=== PATIENT | female | born 1960 | race Caucasian/White ===

== ENCOUNTER 2019-12-29 13:57 | Emergency (ER) | payer OTHER, SELFPAY ==
[2019-12-29 14:10] VITALS: BP 126/94; PULSE 71; RESP 16; TEMP 36.7; O2SAT 95; BMI 17.2
--- NOTE | 2019-12-29 14:22 | W.ED.GENADLT ---
HPI - General Adult General: Chief complaint: General Medical Stated complaint: throat spasms Time Seen by Provider: 12/29/19 14:18 History of Present Illness: HPI narrative: Patient is a 59-year-old female comes to the ED with esophageal spasms. Patient has a history of esophageal spasms and talk to her PCP on Monday and they told her if symptoms worsen she can come to the ED to get some treatment to help reduce spasms. Patient says this started on and has continued to get worse. She says she has had trouble eating or drinking over the past couple days. Denies any shortness of breath, palpitations, nausea/vomiting, bladder or bowel symptoms. Associated symptoms: Deny chest pain, dyspnea, headache(s), nausea, rash, palpitations or vomiting Review of Systems Const: Denies: fever(s), chills or fatigue Eyes: Denies: change in vision or eye discomfort ENMT: Reports: other (esophageal spasms); Denies: throat pain, odynophagia, nasal discharge or nasal congestion Card: Denies: chest pain, palpitations, edema, swelling of feet/ankles, dyspnea on exertion or orthopnea Resp: Denies: dyspnea, productive cough or non-productive cough GI: Denies: abdominal pain, nausea, vomiting, diarrhea, constipation or hematochezia : Denies: flank pain, dysuria or hematuria Musc: Denies: neck pain, back pain or extremity swelling Skin/Breast: Denies: rash or new lesions Neuro: Denies: headache(s), numbness in extremities or weakness in extremities PFS ED PFSH: Social History Smoking and tobacco status: never smoked Alcohol intake: current Alcohol intake frequency: holidays/special occasions only Substance/Drug Use: never Physical Exam Const: COMMON NORMALS: no acute distress, patient oriented x3 and alert GENERAL APPEARANCE: cooperative and anxious HENMT: COMMON NORMALS: normocephalic HEAD & SCALP: normocephalic MOUTH: Normal oral and palatal mucosa present THROAT: posterior oropharynx normal and uvula midline Eye: COMMON NORMALS: Equal, round and reactive pupils present PUPIL: Yes Equal, round and reactive pupils present Neck/C-Spine: COMMON NORMALS: supple GENERAL: Yes normal visual inspection Resp: COMMON NORMALS: normal respiratory effort, No retractions, No use of accessory muscles and clear to auscultation bilaterally AUSCULTATION: clear to auscultation bilaterally Cardio: COMMON NORMALS: regular rate, regular rhythm, S1 normal heart sound present, S2 normal heart sound present, No gallops present (Cardio), No clicks present (Cardio), No murmurs present (Cardio) and Peripheral pulses 2+ throughout RATE: regular rate RHYTHM: regular rhythm HEART SOUNDS: S1 normal heart sound present and S2 normal heart sound present PERIPHERAL PULSES: Peripheral pulses 2+ throughout GI: COMMON NORMALS: Normal to inspection, nondistended, normoactive bowel sounds present, Soft to palpation, non-tender and no masses PALPATION: Yes Soft to palpation : COMMON NORMALS: Yes no CVA tenderness BLADDER/KIDNEY EXAM: Yes no CVA tenderness Back/Pelvis: COMMON NORMALS: no CVA tenderness Extremity: COMMON NORMALS: normal to inspection and no pedal edema Neuro: COMMON NORMALS: patient oriented x3 and moves all extremities SENSORIUM/ORIENTATION: Yes alert Skin: COMMON NORMALS: no rashes or lesions noted GENERAL SKIN EXAM: no rashes or lesions noted and dry skin Course Vital Signs: Vital signs: Vital Signs Temperature 98.1 F 12/29/19 14:10 Pulse Rate 71 12/29/19 14:10 Respiratory Rate 16 12/29/19 14:10 Blood Pressure 126/94 12/29/19 14:10 Pulse Oximetry 95 12/29/19 14:10 MDM - General Adult MDM Narrative: Medical decision making narrative: pt is a 59 y/o F that comes to the ED with esophageal spasms. She has had previous episodes of esophageal spasms. EKG was performed and showed normal sinus rhythm with no st segment elevation or depression seen. pt was given IV 2L of fluid and nitroglycerin along with hydralazine to help with spasms. She had some mild improvement with symptoms. I then gave patient Ativan and norflex to help with symptoms as well and then discharged patient. She was also given a script for cyclobenzaprine to help with esophageal spasms as well. She was told to call her PCP tomorrow morning to discuss ER visit and continuing symptoms of Esophageal spasms. Pt understood and agreed with plan. EKG Data^: EKG 1: Attestation: I personally reviewed and interpreted this EKG as follows: EKG interpretation date: 12/29/19 Interpretation: Normal sinus rhythm, 88 bpm, no ST segment elevation or depression seen. P waves present. Discharge Plan Discharge Patient Disposition: Home, Self-Care Clinical Impression: Esophageal spasm Condition: Stable Prescriptions: New cyclobenzaprine 10 mg tablet 10 mg PO TID PRN (Reason: muscle spasm) Qty: 20 RF: 0 No Action amlodipine 5 mg Tablet 5 mg PO DAILY RF: 0 tramadol 50 mg Tablet 50 mg PO BID PRN (Reason: Pain) RF: 0 levothyroxine 25 mcg Tablet 25 mcg PO DAILY RF: 0 Ambien 10 mg Tablet 10 mg PO BEDTIME RF: 0 Discharge Orders: Discharge Order (Routine); Ordered 12/29/19 Ordered By: Henry Morfni Referrals: Moe Carrillo, [Primary Care Provider] - Discharge Diet: Regular Discharge Activity: Resume usual activity Patient Instructions: Esophageal Spasm (ED) Activity Restrictions/Additional Instructions: Follow-up with medical provider and give them a call tomorrow morning to discuss esophageal spasm symptoms. Take medications as prescribed. Return to the ER or your medical provider if condition worsens. Please read and understand discharge instructions. If any questions, please ask. Coding Level of Care Code ED Route Driver Salesperson for Chg Fwd Exam Comprehensive
--- NOTE | 2019-12-29 14:30 | ECG_ITS ---
[facility] Test Date: 2019-12-29 Pat Name: Cheri Tobias Department: Room: Gender: Female Carding Supervisor: : 1960 Requested By: Henry Morfin Order Number: [id number] Roe MD: Maria Luz Simons M.D. Measurements Intervals [place] Rate: 88 P: 81 MT: 152 QRS: 55 QRSD: 69 T: 73 QT: 362 QTc: 438 Interpretive Statements SINUS RHYTHM No previous ECG available for comparison Electronically Signed On 12-29-2019 19:59:47 CDT by Maria Luz Simons M.D. [email or web address]
[2019-12-29] MEDS: nitroglycerin 0.4 mg sublingual Tablet SUBLINGUAL (15:15)
[2019-12-29] MEDS: hyDRALAzine 20 mg/mL INJ 1 mL 10 MG IVP (15:15)
[2019-12-29] MEDS: sodium chloride 0.9% 1,000 ML 999 ML IV ×2 (15:16→16:51)
[2019-12-29] MEDS: LORazepam 2 mg/mL INJ 1 mL IVP (16:12)
[2019-12-29] MEDS: lidocaine 2% viscous 15 ML, aluminum-mag hydrox-simethicon 30 ML, sucralfate oral liq 1 GM PO (16:49)
[2019-12-29] MEDS: orphenadrine 30 mg/mL Inj 2 mL 60 MG IVP (17:21)
[2019-12-29 18:30] VITALS: BP 138/47; PULSE 98; RESP 20; O2SAT 100
== END 2019-12-29 18:32 | disposition home or self-care (01) ==
PROVIDERS: Emergency Provider Physician Assistant; PCP Electrodiagnostic Medicine
DX: K22.4 Dyskinesia of esophagus (principal)
CPT/HCPCS: 12345; 93005; 96361; 96374; 96375; 99282; 99283; J0360; J2060; J2360; J7030

== ENCOUNTER 2021-09-09 08:29 | Emergency (ER) | payer OTHER, SELFPAY ==
[2021-09-09 08:35] VITALS: BP 134/90; PULSE 73; RESP 15; TEMP 36.5; O2SAT 100; BMI 15.7
--- NOTE | 2021-09-09 08:54 | ED_ITS ---
HPI - General Adult General: Chief complaint: Airway/Esophagus Foreign Body Stated complaint: throat spasms Time Seen by Provider: 09/09/21 08:43 History of Present Illness: Patient reports here today with complaints of esophageal discomfort. That started yesterday. Patient states that she had this happen couple years ago where her esophagus swelled and she had to come in and get IV medication. Patient states prior has problem with reflux she had taken medication for it. Patient states it feels like it is tight right above her stomach slightly tender and that she really cannot eating anything and that she is spitting up some food. She is able to handle her secretions she has no drooling she has taken sips of water. Denies any vomiting denies any diarrhea, fever chills, or chest pains or shortness of breath. Associated symptoms: Deny chest pain, dyspnea, headache(s), nausea, rash or vomiting Review of Systems Narrative: Patient did take cyclobenzaprine and Xanax through the night and yesterday. Patient was able to sleep throughout the night without difficulty Const: Denies: fever(s), chills or body aches Eyes: Denies: eye discomfort ENMT: Denies: throat pain Card: Denies: chest pain Resp: Denies: dyspnea GI: Reports: abdominal pain and other (Feels like food is stuck in her lower esophagus, said it feels like it spas); Denies: nausea, vomiting or dysphagia Skin/Breast: Denies: rash Neuro: Denies: headache(s) Psych: Denies: depression or suicidal ideation [facility] ED PFSH: Social History Smoking and tobacco status: never smoked Alcohol intake: current Alcohol intake frequency: holidays/special occasions only Physical Exam Narrative: EXAM NARRATIVE: Patient is sipping on water but spitting into a cup also. Patient has no drooling going on. Patient does not have any shortness of breath. Const: COMMON NORMALS: no acute distress, patient oriented x3 and alert HENMT: COMMON NORMALS: normocephalic and external ears normal HEAD & SCALP: normocephalic EXTERNAL EAR: Yes external ears normal Eye: COMMON NORMALS: EOMs intact bilaterally Neck/C-Spine: COMMON NORMALS: no JVD Resp: COMMON NORMALS: normal respiratory effort and No use of accessory muscles Cardio: COMMON NORMALS: no JVD GI: AUSCULTATION: Yes normoactive bowel sounds PALPATION: Yes Tenderness to palpation present (GI) (Esophagus right above xiphoid process) Extremity: COMMON NORMALS: normal to inspection and full ROM Neuro: COMMON NORMALS: patient oriented x3 SENSORIUM/ORIENTATION: Yes alert Psych: COMMON NORMALS: mental status grossly normal Skin: COMMON NORMALS: no rashes or lesions noted GENERAL SKIN EXAM: no rashes or lesions noted Course Vital Signs: Vital signs: Vital Signs Temperature 97.7 F 09/09/21 08:35 Pulse Rate 73 09/09/21 08:35 Respiratory Rate 15 09/09/21 08:35 Blood Pressure 134/90 09/09/21 08:35 Pulse Oximetry 100 09/09/21 08:35 [facility] - General Adult Medical Decision Making Patient presents with what she calls esophageal pressure swelling possible spasm she had this couple years ago. Patient was given a nitroglycerin and IV Pepcid and Norflex plus a liter fluid and patient responded very well and is able to drink without difficulty. Patient also was given a GI cocktail after she felt much better. Patient drank a full bottle of water without I am coming back up. Drawn encourage patient to follow-up Dr. Carrillo see about getting scheduled for an E GD also strongly recommend getting colonoscopy done or at least a Cologuard test. Patient also given 90-day prescription for Prilosec as she has and they only pay for with 90 days. I did encourage patient to go ahead and buy weeks worth at the local store and take that till prescription comes in Discharge Plan Discharge Patient Disposition: Home Clinical Impression: Gastroesophageal reflux disease Condition: Stable Prescriptions: New omeprazole 40 mg capsule,delayed release(DR/EC) 40 mg PO DAILY 90 Days Qty: 90 0RF No Action amlodipine 5 mg Tablet 5 mg PO DAILY 0RF tramadol 50 mg Tablet 50 mg PO BID PRN (Reason: Pain) 0RF levothyroxine 25 mcg Tablet 25 mcg PO DAILY 0RF Ambien 10 mg Tablet 10 mg PO BEDTIME 0RF cyclobenzaprine 10 mg tablet 10 mg PO TID PRN (Reason: muscle spasm) Qty: 20 0RF Discharge Orders: Discharge ED (Routine); Ordered 09/09/21 Ordered By: Ricardo Valle Referrals: Moe Carrillo, [Primary Care Provider] - Discharge Diet: Advance as tolerated Discharge Activity: Resume usual activity Patient Instructions: GERD (Gastroesophageal Reflux Disease) (ED), Esophageal Spasm (ED) Activity Restrictions/Additional Instructions: Follow-up with medical provider as directed. Take medications as prescribed. Return to the ER or your medical provider if condition worsens. Please read and understand discharge instructions. If any questions ask please. I strongly suggest you follow-up Dr. Carrillo get scheduled for an EGD and I also recommended that you get a colonoscopy or at least do the Cologuard test. Coding Level of Care Code ED Company Accountant for Chg Fwd Exam Comprehensive
[2021-09-09] MEDS: sodium chloride 0.9% 1,000 ML 999 ML IV (09:01)
[2021-09-09] MEDS: orphenadrine 30 mg/mL Inj 2 mL 60 MG IVP (09:16)
[2021-09-09] MEDS: famotidine 20 mg/2 mL INJ 40 MG IVP (09:21)
[2021-09-09] MEDS: lidocaine 2% viscous 15 ML, aluminum-mag hydrox-simethicon 30 ML, sucralfate oral liq 1 GM PO (10:16)
[2021-09-09 10:39] VITALS: BP 123/80; PULSE 65; RESP 16; O2SAT 99
== END 2021-09-09 10:50 | disposition home or self-care (01) ==
PROVIDERS: Emergency Provider Nurse Practitioner Family; PCP Electrodiagnostic Medicine
DX: K21.9 Gastro-esophageal reflux disease without esophagitis (principal)
CPT/HCPCS: 96361; 96374; 96375; 99283; J0360; J2360; J3490; J7030

== ENCOUNTER → 2022-01-25 08:09 | Outpatient (BNVA) | payer OTHER, SELFPAY | PROVIDERS: PCP Electrodiagnostic Medicine; Visit Provider Physician Assistant | DX: M25.532 Pain in left wrist (principal) | CPT/HCPCS: 73110 ==

== ENCOUNTER 2022-01-25 10:21 | Outpatient (CLI) | payer OTHER, SELFPAY | END 2022-01-25 10:22 | disposition home or self-care (01) | LOC: SPT 10:22 | PROVIDERS: PCP Electrodiagnostic Medicine; Visit Provider Physician Assistant | DX: Z46.89 Encounter for fitting and adjustment of other specified devices (principal); M25.332 Other instability, left wrist | CPT/HCPCS: 97760; L3984 ==

== ENCOUNTER → 2022-02-15 08:52 | Outpatient (BNVA) | payer OTHER, SELFPAY | PROVIDERS: PCP Electrodiagnostic Medicine; Visit Provider Physician Assistant | DX: S52.571D Other intraarticular fracture of lower end of right radius, subsequent encounter for closed fracture with routine healing (principal); S52.572D Other intraarticular fracture of lower end of left radius, subsequent encounter for closed fracture with routine healing; X58.XXXD Exposure to other specified factors, subsequent encounter | CPT/HCPCS: 73110 ==

== ENCOUNTER 2022-02-15 14:15 | Outpatient (CLI) | payer OTHER, SELFPAY | END 2022-02-15 14:16 | disposition home or self-care (01) | LOC: SPT 14:16 | PROVIDERS: PCP Electrodiagnostic Medicine; Visit Provider Physician Assistant | DX: Z46.89 Encounter for fitting and adjustment of other specified devices (principal); S52.591D Other fractures of lower end of right radius, subsequent encounter for closed fracture with routine healing; S52.592D Other fractures of lower end of left radius, subsequent encounter for closed fracture with routine healing; X58.XXXD Exposure to other specified factors, subsequent encounter | CPT/HCPCS: 97760; L3809; L3908 ==

== ENCOUNTER → 2022-03-01 14:37 | Outpatient (BNVA) | payer OTHER, SELFPAY | PROVIDERS: PCP Electrodiagnostic Medicine; Visit Provider Physician Assistant | DX: S52.501D Unspecified fracture of the lower end of right radius, subsequent encounter for closed fracture with routine healing (principal); W19.XXXD Unspecified fall, subsequent encounter; S52.502D Unspecified fracture of the lower end of left radius, subsequent encounter for closed fracture with routine healing | CPT/HCPCS: 73110 ==

== ENCOUNTER 2023-10-24 13:13 | Oncology outpatient (recurring) (ONCR) | payer OTHER, SELFPAY ==
[2023-09-25 15:17] LABS: Basophils # 0.1 10^3/uL (0.0-0.1); Eosinophils # 0.1 10^3/uL (0.0-0.8); Eosinophils % 0.6 %; Lymphocytes # 2.6 10^3/uL (0.8-4.8); Lymphocytes % 33.2 %; Mean Corpuscular HGB Conc 31.8 g/dL (30-55); Mean Corpuscular Hemoglobin 28.2 pg (27-33); Mean Corpuscular Volume 88.7 fl (85-98); Mean Platelet Volume 9.4 fL (7.4-10.4); Monocytes # 1.1 10^3/uL (0.2-0.9); Monocytes % 14.8 %; Neutrophils # 3.88 10^3/uL (1.8-7.7); Neutrophils % 50.3 %; Nucleated Red Blood Cells % 0 %; Platelet Count 478 10^3/cmm (157-399); Red Blood Count 2.48 10^6/uL (3.85-5.65); Red Cell Distribution Width 14.6 % (12.1-15.1); Reticulocyte % 1.4 % (0.5-2.0); White Blood Count 7.72 10^3/uL (3.29-11.43)
[2023-09-25 15:41] LABS: Alanine Aminotransferase 41 U/L (0-33); Albumin Level 3.4 g/dL (3.5-5.2); Alkaline Phosphatase 114 U/L (35-105); Anion Gap 14.5 (5-19); Aspartate Amino Transferase 66 U/L (0-32); Blood Urea Nitrogen 8 mg/dL (8-23); Calcium 8.8 mg/dL (8.5-10.5); Carbon Dioxide 28 mmol/L (22-29); Chloride 98 mmol/L (98-107); Creatinine Clr Calc Pharmacy 83.1181; Ferritin 21 ng/mL (15-150); Globulin 3.4 g/dL (1.3-4.6); Glucose 87 mg/dL (65-115); Iron 17 ug/dL (37-145); Lactate Dehydrogenase 178 U/L (135-214); Osmolality Calculated 282 mOsm/kg (285-295); Potassium 3.5 mmol/L (3.5-5.1); Sodium 137 mmol/L (136-145); Total Bilirubin 0.3 mg/dL (0.15-1.2); Total Iron Binding Capacity 279 mcg/dl; Total Protein 6.8 g/dL (6.6-8.7); Unsaturated Iron Binding 262 ug/dL (112-347)
[2023-09-25 15:55] LABS: Vitamin B12 637 pg/mL (232-1245)
[2023-09-29] MEDS: ferric carboxy (IVPB) 750 MG in sodium chloride 0.9% (100 ml) 100 ML 345 MG IV (09:46)
[2023-09-29 10:22] VITALS: BP 105/67; BP 106/72; PULSE 85; RESP 16; TEMP 36.4; O2SAT 99
[2023-10-06] MEDS: sodium chloride 0.9% 250 ML 75 ML IV (09:32)
[2023-10-06] MEDS: diphenhydrAMINE 50 mg/mL SDV 1mL 25 MG IVP (09:33)
[2023-10-06] MEDS: ferric carboxy (IVPB) 750 MG in sodium chloride 0.9% (100 ml) 100 ML 345 MG IV (09:37)
[2023-10-06 09:41] LABS: Basophils # 0.1 10^3/uL (0.0-0.1); Basophils % 1.6 %; Eosinophils # 0.1 10^3/uL (0.0-0.8); Eosinophils % 3.7 %; Hematocrit 26.2 % (36-47); Lymphocytes # 1.1 10^3/uL (0.8-4.8); Lymphocytes % 28.6 %; Mean Corpuscular HGB Conc 30.5 g/dL (30-55); Mean Corpuscular Hemoglobin 28.5 pg (27-33); Mean Corpuscular Volume 93.2 fl (85-98); Mean Platelet Volume 9.9 fL (7.4-10.4); Monocytes # 0.5 10^3/uL (0.2-0.9); Monocytes % 13.6 %; Neutrophils # 1.99 10^3/uL (1.8-7.7); Neutrophils % 52.2 %; Nucleated Red Blood Cells % 0 %; Platelet Count 414 10^3/cmm (157-399); Red Blood Count 2.81 10^6/uL (3.85-5.65); Red Cell Distribution Width 20.3 % (12.1-15.1); White Blood Count 3.81 10^3/uL (3.29-11.43)
[2023-10-06 10:23] VITALS: BP 106/68; PULSE 66; RESP 16; TEMP 36.6; O2SAT 99
[2023-10-23 14:31] LABS: Basophils # 0.1 10^3/uL (0.0-0.1); Eosinophils # 0.1 10^3/uL (0.0-0.8); Eosinophils % 0.9 %; Lymphocytes # 1.8 10^3/uL (0.8-4.8); Lymphocytes % 31.5 %; Mean Corpuscular HGB Conc 31.9 g/dL (30-55); Mean Corpuscular Hemoglobin 30.2 pg (27-33); Mean Corpuscular Volume 94.5 fl (85-98); Mean Platelet Volume 9.4 fL (7.4-10.4); Monocytes # 0.9 10^3/uL (0.2-0.9); Monocytes % 15.5 %; Neutrophils # 2.93 10^3/uL (1.8-7.7); Neutrophils % 50.9 %; Nucleated Red Blood Cells % 0 %; Platelet Count 342 10^3/cmm (157-399); Red Blood Count 3.28 10^6/uL (3.85-5.65); Red Cell Distribution Width 21.3 % (12.1-15.1); White Blood Count 5.75 10^3/uL (3.29-11.43)
[2023-10-23 14:53] LABS: Alanine Aminotransferase 49 U/L (0-33); Albumin Level 3.6 g/dL (3.5-5.2); Alkaline Phosphatase 172 U/L (35-105); Anion Gap 12.1 (5-19); Aspartate Amino Transferase 118 U/L (0-32); Blood Urea Nitrogen 8 mg/dL (8-23); Calcium 8.1 mg/dL (8.5-10.5); Carbon Dioxide 28 mmol/L (22-29); Chloride 101 mmol/L (98-107); Globulin 3.4 g/dL (1.3-4.6); Glomerular Filtration Rate 161.7 mL/min (90-130); Glucose 109 mg/dL (65-115); Iron 112 ug/dL (37-145); Osmolality Calculated 283 mOsm/kg (285-295); Percent Saturation 51.8 % (20-50); Potassium 4.1 mmol/L (3.5-5.1); Sodium 137 mmol/L (136-145); Total Bilirubin 0.2 mg/dL (0.15-1.2); Total Iron Binding Capacity 216 mcg/dl; Unsaturated Iron Binding 104 ug/dL (112-347)
[2023-10-23 14:54] LABS: Creatinine Clr Calc Pharmacy 103.8976
[2023-10-23 15:05] LABS: Ferritin 1176 ng/mL (15-150)
== END 2023-10-24 23:59 | disposition home or self-care (01) ==
PROVIDERS: PCP Electrodiagnostic Medicine; Visit Provider Internal Medicine Medical Oncology
DX: Z53.9 Procedure and treatment not carried out, unspecified reason (principal)
CPT/HCPCS: 36415; 80053; 82607; 82728; 83010; 83540; 83550; 83615; 85025; 85045; 96365; 96375; J1200; J1439; J7050

== ENCOUNTER 2024-08-29 17:30 | Emergency (ER) | payer OTHER, SELFPAY ==
[2024-08-29] VITALS (9 sets, daily range): BP systolic 87–110; BP diastolic 60–84; PULSE 88–100; RESP 10–21; TEMP 36.3–36.6; O2SAT 91–100; BMI 15.7
--- NOTE | 2024-08-29 18:17 | CTR_ITS ---
PROCEDURE INFORMATION: Exam: CT Abdomen And Pelvis With Contrast Exam date and time: 08/29/2024 6:45 PM Age: 64 years old Clinical indication: Abnormal findings; Abnormal lab test; Elevated liver enzymes; Bloating; Additional info: Jaundice TECHNIQUE: Imaging protocol: Computed tomography of the abdomen and pelvis with contrast. Radiation optimization: All CT scans at this facility use at least one of these dose optimization techniques: automated exposure control; mA and/or kV adjustment per patient size (includes targeted exams where dose is matched to clinical indication); or iterative reconstruction. Contrast material: OMNI 350; Contrast volume: 80 ml; Contrast route: INTRAVENOUS (IV); COMPARISON: [place] [id number] 09/07/2023 8:08 AM RADIATION DOSE METRICS: Total DLP (mGy-cm): 298.46 FINDINGS: Pleural spaces: Large right small left pleural effusions. Atelectatic changes in the right lung base. Liver: Subtle irregularity of the liver contour which can be seen in the setting of cirrhosis.. Gallbladder and biliary ducts: Tiny calcified stones versus sludge in the fundus of the gallbladder. No intrahepatic or extrahepatic biliary ductal dilatation. Pancreas: Normal. No ductal dilation. Spleen: Normal. No splenomegaly. Adrenal glands: Normal. No mass. Kidneys and ureters: Normal. No hydronephrosis. Stomach and bowel: There is circumferential bowel wall thickening in the cecum and ascending colon which may be due to liver pathology but inflammatory or infectious colitis is not excluded. Appendix: No evidence of appendicitis. Intraperitoneal space: Large volume ascites. Vasculature: Unremarkable. No abdominal aortic aneurysm. Lymph nodes: Unremarkable. No enlarged lymph nodes. Urinary bladder: Unremarkable as visualized. Reproductive: Unremarkable as visualized. Bones/joints: Unremarkable. No acute fracture. Soft tissues: Unremarkable. CT/CT abdomen pelvis w con* [id number] IMPRESSION: 1. Subtle irregularity of the liver contour which can be seen in the setting of cirrhosis. 2. Large volume abdominal ascites. 3. There is circumferential bowel wall thickening in the cecum and ascending colon which may be due to liver pathology but inflammatory or infectious colitis is not excluded.
--- NOTE | 2024-08-29 18:17 | XRR_ITS ---
PROCEDURE INFORMATION: Exam: XR Chest Exam date and time: 08/29/2024 6:26 PM Age: 64 years old Clinical indication: Other: Weakness TECHNIQUE: Imaging protocol: Radiologic exam of the chest. Views: 1 view. COMPARISON: No relevant prior studies available. FINDINGS: Lungs: Unremarkable. No consolidation. Pleural spaces: Unremarkable. No pleural effusion. No pneumothorax. Heart/Mediastinum: Unremarkable. No cardiomegaly. Bones/joints: Unremarkable. XR/XR chest 1V portable [id number] IMPRESSION: No acute findings.
--- NOTE | 2024-08-29 18:17 | USR_ITS ---
PROCEDURE INFORMATION: Exam: US Abdomen, Limited; Right Upper Quadrant Exam date and time: 08/29/2024 7:02 PM Age: 64 years old Clinical indication: Other: Jaundice; No labs are available at the time of this exam. TECHNIQUE: Imaging protocol: Real time ultrasound of the abdomen with image documentation. Limited exam focused on the right upper quadrant. COMPARISON: [place] [id number] 09/07/2023 8:08 AM FINDINGS: Pleural spaces: Partially visualized right pleural effusion. Liver: Cirrhotic liver. Gallbladder: There is sludge in the gallbladder. There is gallbladder wall thickening measuring up to 6 mm. No sonographic Gage's sign elicited during the examination. Biliary ducts: The common bile duct is normal in size measuring 5 mm. Pancreas: Visualized pancreas is unremarkable. Right kidney: The right kidney measures 9.3 cm in length with no hydronephrosis or renal calculus. Left kidney: The left kidney was not assessed. Spleen: The spleen was not assessed. Aorta: The abdominal aorta and IVC are unremarkable. Portal venous: The main portal vein was not well-visualized. US/US gall bladder [id number] IMPRESSION: 1. Cirrhotic liver. 2. Sludge in the gallbladder with no sonographic Gage's sign or intrahepatic or extrahepatic biliary ductal dilatation. 3. Bladder wall thickening may be secondary to liver pathology. 4. Main portal vein was not well-visualized.
--- NOTE | 2024-08-29 18:19 | W.ED.RECABL ---
HPI - Recheck/Abnormal Lab/Rx General: Chief Complaint: Recheck/Abnormal Lab/Rx Stated Complaint: liver problems sent from oncology Time Seen by Provider: 08/29/24 18:14 Source: patient Mode of arrival: ambulatory Limitations: no limitations History of Present Illness: 64-year-old female sent here from oncology she has a history of iron deficient anemia other she was there to get possible blood transfusion they got her labs back she was anemic but she also is quite jaundiced she has visible jaundice and scleral icterus her bilirubin was elevated and was sent here she denies any abdominal pain denies any vomiting she has had some lethargy Related Data Home Medications ?Medication ?Instructions ?Recorded ?Confirmed amlodipine 5 mg tablet 5 mg PO DAILY 12/29/19 08/29/24 levothyroxine 25 mcg tablet 25 mcg PO DAILY 12/29/19 08/29/24 tramadol 50 mg tablet 50 mg PO BID PRN Pain 12/29/19 08/29/24 zolpidem 10 mg tablet (Ambien) 10 mg PO BEDTIME 12/29/19 08/29/24 alprazolam 0.25 mg tablet 0.25 mg PO DAILY 01/25/22 08/29/24 cholecalciferol (vitamin D3) 62.5 mcg PO 09/25/23 08/29/24 mcg (2,500 unit) capsule epinephrine 0.3 mg/0.3 mL 0.3 mg IM Q4H PRN 09/25/23 08/29/24 injection, auto-injector famotidine 20 mg tablet 20 mg PO DAILY 09/25/23 08/29/24 paroxetine HCl 20 mg tablet 20 mg PO DAILY 09/25/23 08/29/24 vitamin B complex-folic acid 0.4 1 tab PO DAILY 09/25/23 08/29/24 mg tablet (Super B Maxi Complex) Previous Rx's ?Medication ?Instructions ?Recorded amoxicillin 875 mg-potassium 1 tab PO BID 7 days #14 tabs 10/26/23 clavulanate 125 mg tablet Allergies Allergy/AdvReac Type Severity Reaction Status Date / Time bee venom protein (honey bee) Allergy Severe ALGY-Anaphy Verified 08/29/24 14:12 laxis Iodinated Contrast Media Allergy Mild ADR-Dizzine Verified 08/29/24 14:12 ss/Nausea Iodine and Iodide Containing Allergy ADR-Halluci Verified 08/29/24 14:12 Suni nunez Review of Systems Const: Denies: fever(s), chills, body aches or change in appetite ENMT: Denies: throat pain or dental pain Card: Denies: chest pain Resp: Denies: dyspnea GI: Denies: abdominal pain, nausea, vomiting or diarrhea Musc: Denies: neck pain or back pain Skin/Breast: Denies: rash Neuro: Denies: headache(s) PFSH ED PFSH: Medical History Radius distal fracture (12/2021) Bilateral History of endometriosis Anxiety Hypothyroidism Raynauds disease Iron deficiency anemia Surgical History History of joint replacement Right thumb History of laparoscopy x 5, for endometriosis History of tonsillectomy Family History Father Diving accident Mother Dementia Heart disease Grandmother Lung cancer Social History Smoking and tobacco/nicotine status: never used tobacco/nicotine Alcohol intake: current Alcohol intake frequency: 0-2 Drinks per Day Alcohol type: wine Substance/Drug Use: never Physical Exam Const: COMMON NORMALS: no acute distress, patient oriented x3 and healthy appearing HENMT: COMMON NORMALS: normocephalic and atraumatic HEAD & SCALP: normocephalic and atraumatic Eye: OTHER: sclerus icterus Neck/C-Spine: COMMON NORMALS: full ROM and supple Chest: COMMONS NORMALS: normal inspection of the chest Resp: COMMON NORMALS: normal respiratory effort, No retractions, No use of accessory muscles and clear to auscultation bilaterally AUSCULTATION: clear to auscultation bilaterally Cardio: COMMON NORMALS: regular rate, regular rhythm and No murmurs present (Cardio) RATE: regular rate RHYTHM: regular rhythm GI: COMMON NORMALS: Normal to inspection, nondistended, normoactive bowel sounds present, Soft to palpation, non-tender and no masses PALPATION: Yes Soft to palpation Extremity: COMMON NORMALS: normal to inspection and full ROM Neuro: COMMON NORMALS: patient oriented x3, moves all extremities and no focal motor deficits Psych: COMMON NORMALS: mental status grossly normal, Normal thought process present and cooperative THOUGHT PROCESS: Normal thought process present Skin: COMMON NORMALS: no wounds NARRATIVE SKIN EXAM: jaundice Course Vital Signs: Vital signs: Vital Signs Temperature 97.7 F 08/29/24 21:22 Pulse Rate 93 08/29/24 21:22 Respiratory Rate 10 L 08/29/24 21:22 Blood Pressure 92/66 08/29/24 21:22 Pulse Oximetry 100 08/29/24 21:22 Oxygen Delivery Me thod Room Air 08/29/24 20:37 MDM - Recheck/Abnormal Lab/Rx Medical Decision Making Patient presents here with anemia she is also found to be hyponatremic with a sodium 121 also has elevated bilirubin with cirrhosis seen on CT of the abdomen since new onset cirrhosis. Did give patient fluids along with antibiotics and blood products her blood pressures improved. Did speak to IMU and will transfer there for higher level of care of GI Medical Records I reviewed the patient's medical records. Lab Data I reviewed the patient's lab results. 08/29/24 19:30 08/29/24 19:56 Radiology Impressions Abdomen/Pelvis CT 08/29/24 18:17 IMPRESSION: 1. Subtle irregularity of the liver contour which can be seen in the setting of cirrhosis. 2. Large volume abdominal ascites. 3. There is circumferential bowel wall thickening in the cecum and ascending colon which may be due to liver pathology but inflammatory or infectious colitis is not excluded. Chest X-Ray 08/29/24 18:17 IMPRESSION: No acute findings. Gallbladder Ultrasound 08/29/24 18:17 IMPRESSION: 1. Cirrhotic liver. 2. Sludge in the gallbladder with no sonographic Gage's sign or intrahepatic or extrahepatic biliary ductal dilatation. 3. Bladder wall thickening may be secondary to liver pathology. 4. Main portal vein was not well-visualized. Laboratory Results WBC 12.19 10^3/uL (3.29-11.43) H 08/29/24 19:30 RBC 1.89 10^6/uL (3.85-5.65) L 08/29/24 19:30 Hgb 5.30 g/dL (11.27-16.99) L* 08/29/24 19:30 Hct 16.3 % (36-47) L* 08/29/24 19:30 MCV 86.2 fl (85-98) 08/29/24 19:30 MCH 28.0 pg (27-33) 08/29/24 19:30 MCHC 32.5 g/dL (30-55) 08/29/24 19:30 RDW 17.4 % (12.1-15.1) H 08/29/24 19:30 Plt Count 279 10^3/cmm (157-399) 08/29/24 19:30 MPV 10.5 fL (7.4-10.4) H 08/29/24 19:30 Neut % (Auto) 75.9 % 08/29/24 19:30 Lymph % (Auto) 13.1 % 08/29/24 19:30 [place] % (Auto) 10.1 % 08/29/24 19:30 Eos % (Auto) 0.1 % 08/29/24 19:30 Baso % (Auto) 0.2 % 08/29/24 19:30 Neut # (Auto) 9.25 10^3/uL (1.8-7.7) H 08/29/24 19:30 Lymph # (Auto) 1.6 10^3/uL (0.8-4.8) 08/29/24 19:30 [place] # (Auto) 1.2 10^3/uL (0.2-0.9) H 08/29/24 19:30 Eos # (Auto) 0.0 10^3/uL (0.0-0.8) 08/29/24 19:30 Baso # (Auto) 0.0 10^3/uL (0.0-0.1) 08/29/24 19:30 Nucleated RBC % (auto) 0 % 08/29/24 19:30 Nucleated RBCs # 0.0 /100WBC 08/29/24 19:30 PT 19.20 SECONDS (12.1-14.9) H 08/29/24 19:02 INR 1.51 (0.8-1.2) H 08/29/24 19:02 Sodium 121 mmol/L (136-145) L 08/29/24 19:56 Potassium 3.4 mmol/L (3.5-5.1) L 08/29/24 19:56 Chloride 87 mmol/L (98-107) L 08/29/24 19:56 Carbon Dioxide 21 mmol/L (22-29) L 08/29/24 19:56 Anion Gap 16.4 (5-19) 08/29/24 19:56 BUN 16 mg/dL (8-23) 08/29/24 19:56 Creatinine 0.8 mg/dL (0.5-0.9) 08/29/24 19:56 GFR Calculation 72.4 mL/min (90-130) L 08/29/24 19:56 Glucose 97 mg/dL (65-115) 08/29/24 19:56 Calculated Osmolality 253 mOsm/kg (285-295) L 08/29/24 19:56 Lactic Acid 4.3 mmol/L (0.5-2.2) H* 08/29/24 19:02 Calcium 8.1 mg/dL (8.5-10.5) L 08/29/24 19:56 Total Bilirubin 4.7 mg/dL (0.15-1.2) H 08/29/24 19:56 AST 105 U/L (0-32) H 08/29/24 19:56 ALT 33 U/L (0-33) 08/29/24 19:56 Alkaline Phosphatase 185 U/L (35-105) H 08/29/24 19:56 Total Protein 6.7 g/dL (6.6-8.7) 08/29/24 19:56 Albumin 2.5 g/dL (3.5-5.2) L 08/29/24 19:56 Globulin 4.2 g/dL (1.3-4.6) 08/29/24 19:56 Lipase 43 U/L (13-60) 08/29/24 19:56 Urine Color Dark yellow (Yellow) A 08/29/24 19:55 Urine Appearance Clear (CLEAR) 08/29/24 19:55 Urine pH 6.0 (5-7) 08/29/24 19:55 Ur Specific [place] 1.060 (1.005-1.030) H 08/29/24 19:55 Urine Protein Trace (Negative) A 08/29/24 19:55 Urine Glucose (UA) Negative (Normal) 08/29/24 19:55 Urine Ketones Negative (Negative) 08/29/24 19:55 Urine Blood Negative (Negative) 08/29/24 19:55 Urine Nitrate Positive (Negative) A 08/29/24 19:55 Urine Bilirubin 2+ (Negative) H 08/29/24 19:55 Urine Urobilinogen 4.0 mg/dL (Negative) H 08/29/24 19:55 Ur Leukocyte Esterase Trace (Negative) A 08/29/24 19:55 Urine RBC 0-4 /hpf (0-2) H 08/29/24 19:55 Urine WBC 0-4 /hpf (0-5) H 08/29/24 19:55 Ur Squamous Epith Cells 10-15 /hpf (0-5) H 08/29/24 19:55 Amorphous Sediment Not Reportable 08/29/24 19:55 Urine Bacteria Trace /hpf (NONE) 08/29/24 19:55 Hyaline Casts 5-10 /lpf H 08/29/24 19:55 Blood Type A Positive 08/29/24 19:35 Rho(D) Type Rh positive 08/29/24 19:35 Antibody Screen Negative 08/29/24 19:35 Crossmatch See Detail 08/29/24 19:35 All radiology interpretation(s) finalized by discharge Critical Care Time Critical Care Time: Critical Care Time: Yes Total Critical Care Time: 55 Attestation: The high probability of a clinically significant, sudden or life threatening deterioration of the patient's gi system(s) required my full and direct attention, intervention and personal management. The critical care time is as shown. This time is in addition to time spent performing any reported procedures but includes the following: [x] Data and vital sign review and interpretation [x] Patient assessment, examination and intervention [x] Documentation [x] Medication orders and management Discharge Plan Discharge Patient Disposition: Xfer Short-Term Hosp Clinical Impression: Anemia, Cirrhosis, Hyponatremia Condition: Stable Prescriptions: No Action amoxicillin-pot clavulanate 875-125 mg tablet 1 tab PO BID 7 Days Qty: 14 0RF alprazolam 0.25 mg tablet 0.25 mg PO DAILY epinephrine 0.3 mg/0.3 mL auto-injector 0.3 mg IM Q4H PRN famotidine 20 mg tablet 20 mg PO DAILY paroxetine HCl 20 mg tablet 20 mg PO DAILY vitamin B complex-folic acid [Super B Maxi Complex] 0.4 mg tablet 1 tab PO DAILY cholecalciferol (vitamin D3) 62.5 mcg (2,500 unit) capsule PO amlodipine 5 mg Tablet 5 mg PO DAILY tramadol 50 mg Tablet 50 mg PO BID PRN (Reason: Pain) levothyroxine 25 mcg Tablet 25 mcg PO DAILY Ambien 10 mg Tablet 10 mg PO BEDTIME Referrals: Moe Carrillo DO [Primary Care Provider] - Print Language: Setswana Coding Level of Care Code ED Mothers Helper for Jose Hardy
[2024-08-29] MEDS: iohexol 350 mg/mL 500 mL Btl (per mL) IV (18:50)
[2024-08-29 19:22] LABS: INR 1.51 (0.8-1.2)
[2024-08-29] MEDS: sodium chloride 0.9% 1,000 ML 999 ML IV (19:35)
[2024-08-29 19:46] LABS: Basophils % 0.2 %; Eosinophils % 0.1 %; Lymphocytes # 1.6 10^3/uL (0.8-4.8); Lymphocytes % 13.1 %; Mean Corpuscular HGB Conc 32.5 g/dL (30-55); Mean Corpuscular Volume 86.2 fl (85-98); Mean Platelet Volume 10.5 fL (7.4-10.4); Monocytes # 1.2 10^3/uL (0.2-0.9); Monocytes % 10.1 %; Neutrophils # 9.25 10^3/uL (1.8-7.7); Neutrophils % 75.9 %; Nucleated Red Blood Cells % 0 %; Platelet Count 279 10^3/cmm (157-399); Red Blood Count 1.89 10^6/uL (3.85-5.65); Red Cell Distribution Width 17.4 % (12.1-15.1); White Blood Count 12.19 10^3/uL (3.29-11.43)
[2024-08-29 20:09] LABS: Bilirubin Urine 2+ (Negative); Blood Urine Negative (Negative); Glucose Urine UA Negative (Normal); Ketones Urine Negative (Negative); Leukocyte Esterase Urine Trace (Negative); Nitrate Urine Positive (Negative); Protein Urine Trace (Negative); Urine Appearance Clear (CLEAR); Urine Color Dark Yellow (Yellow)
[2024-08-29 20:09] LABS: Lactic Sepsis W/Reflex 4.3 mmol/L (0.5-2.2)
[2024-08-29 20:15] LABS: Hematocrit 16.3 % (36-47)
[2024-08-29] MEDS: piperacillin-tazobactam 3.375 GM in sodium chloride 0.9% (plus) 50 ML IV (20:18)
[2024-08-29] MEDS: VANCOMYCIN ADD-Vantage 1,000 MG in 0.9% NaCl ADD-Vantage 250 ML 250 MG IV (20:18)
[2024-08-29 20:27] LABS: Alanine Aminotransferase 33 U/L (0-33); Albumin Level 2.5 g/dL (3.5-5.2); Alkaline Phosphatase 185 U/L (35-105); Anion Gap 16.4 (5-19); Aspartate Amino Transferase 105 U/L (0-32); Blood Urea Nitrogen 16 mg/dL (8-23); Calcium 8.1 mg/dL (8.5-10.5); Carbon Dioxide 21 mmol/L (22-29); Chloride 87 mmol/L (98-107); Creatinine Clr Calc Pharmacy 50.5101; Globulin 4.2 g/dL (1.3-4.6); Glomerular Filtration Rate 72.4 mL/min (90-130); Glucose 97 mg/dL (65-115); Lipase 43 U/L (13-60); Osmolality Calculated 253 mOsm/kg (285-295); Potassium 3.4 mmol/L (3.5-5.1); Sodium 121 mmol/L (136-145); Total Bilirubin 4.7 mg/dL (0.15-1.2); Total Protein 6.7 g/dL (6.6-8.7)
[2024-08-29 20:58] LABS: Add Urine Microscopic? YES; Bacteria Urine TRACE /hpf; RBC Urine 0-4 /hpf (0-2); UA Manual Slide Review YES; UA Slide Review UA Slide Review Perf; WBC Urine 0-4 /hpf (0-5)
[2024-08-29 21:31] LABS: Reflex Lactate Order REFLEX LACTIC ORDERD
--- NOTE | 2024-08-29 21:34 | PC.NURSE ---
PT BLOOD STARTED, DOUBLE NURSE VERIFIED BY JESICA De Leon
[2024-08-29] MEDS: sodium chloride 0.9% 500 ML 999 ML IV (21:38)
[2024-08-29] MEDS: sodium chloride 0.9% 100 mL Bag 50 ML IV (21:39)
--- NOTE | 2024-08-29 21:50 | PC.NURSE ---
PT BLOOD STARTED AT 50, AT 15 MIN, WAS TITRATED UP TO 100 ML
[2024-08-29 22:34] LABS: Hepatitis A Antibody IgM Non-Reactive (Nonreactive); Hepatitis B Core AB, Total Non-Reactive (Nonreactive); Hepatitis B Surface AB < 3.5 (11.5-1000); Hepatitis B Surface Antigen Non-Reactive (Nonreactive); Hepatitis C Virus Antibody Non-Reactive (Nonreactive)
--- NOTE | 2024-08-29 22:53 | PC.NURSE ---
2ND UNIT OF BLOOD COLLECTED FROM LAB AND TAKEN BY AIREVAC NURSEAMANDA.
--- NOTE | 2024-08-30 00:42 | PC.NURSE ---
PT ASKED NURSE TO CALL TO LET HIM KNOW SHE WAS BEING TRANSFERRED. NURSE CALLED TO INFORM HIM. GOT VERY AGGRESSIVE AND WAS YELLING AT NURSE OVER THE PHONE. NURSE EXPLAINED WHY SHE WAS BEING TRANSFERRED, PHONE CALL WAS ENDED. PT THEN CALLED BACK AND SPOKE WITH CHARGE NURSE MEG.
== END 2024-08-29 22:53 | disposition short-term general hospital (02) ==
PROVIDERS: Emergency Provider Emergency Medicine; PCP Electrodiagnostic Medicine
DX: D64.9 Anemia, unspecified (principal); K74.60 Unspecified cirrhosis of liver; E87.1 Hypo-osmolality and hyponatremia
CPT/HCPCS: 36415; 36430; 71045; 74177; 76705; 80053; 81001; 83605; 83690; 85025; 85610; 86705; 86706; 86709; 86803; 86850; 86900; 86920; 87040; 87340; 96365; 96367; 99285; J2543; J3370; J7030; J7040; J7050; P9016

== ENCOUNTER 2024-09-12 14:51 | Oncology outpatient (recurring) (ONCR) | payer OTHER, SELFPAY ==
[2024-08-29 14:42] LABS: Basophils % 0.3 %; Lymphocytes # 1.9 10^3/uL (0.8-4.8); Lymphocytes % 13.5 %; Mean Corpuscular Hemoglobin 27.9 pg (27-33); Mean Corpuscular Volume 84.6 fl (85-98); Mean Platelet Volume 10.3 fL (7.4-10.4); Monocytes # 0.9 10^3/uL (0.2-0.9); Monocytes % 6.4 %; Neutrophils # 10.84 10^3/uL (1.8-7.7); Neutrophils % 79.3 %; Nucleated Red Blood Cells % 0 %; Platelet Count 395 10^3/cmm (157-399); Red Cell Distribution Width 17.2 % (12.1-15.1); White Blood Count 13.68 10^3/uL (3.29-11.43)
[2024-08-29 14:51] LABS: Hematocrit 20.3 % (36-47)
[2024-08-29 15:15] LABS: Alanine Aminotransferase 38 U/L (0-33); Albumin Level 2.8 g/dL (3.5-5.2); Alkaline Phosphatase 209 U/L (35-105); Anion Gap 15.3 (5-19); Aspartate Amino Transferase 116 U/L (0-32); Blood Urea Nitrogen 15 mg/dL (8-23); Calcium 8.4 mg/dL (8.5-10.5); Carbon Dioxide 23 mmol/L (22-29); Chloride 88 mmol/L (98-107); Ferritin 62 ng/mL (15-150); Globulin 4.6 g/dL (1.3-4.6); Glucose 101 mg/dL (65-115); Iron 20 ug/dL (37-145); Osmolality Calculated 257 mOsm/kg (285-295); Percent Saturation 11.9 % (20-50); Potassium 3.3 mmol/L (3.5-5.1); Sodium 123 mmol/L (136-145); Thyroid Stimulating Hormone 3.42 uIU/mL (0.27-4.20); Total Bilirubin 5.2 mg/dL (0.15-1.2); Total Iron Binding Capacity 168 mcg/dl; Total Protein 7.4 g/dL (6.6-8.7); Unsaturated Iron Binding 148 ug/dL (112-347)
== END 2024-09-23 23:59 | disposition home or self-care (01) ==
PROVIDERS: PCP Electrodiagnostic Medicine; Visit Provider Nurse Practitioner
DX: Z53.9 Procedure and treatment not carried out, unspecified reason (principal)
CPT/HCPCS: 36415; 80053; 82728; 83540; 83550; 84443; 85025

== ENCOUNTER 2024-09-17 21:08 | Inpatient (IN) | payer OTHER, SELFPAY ==
[2024-09-17] VITALS (9 sets, daily range): BP systolic 76–96; BP diastolic 55–72; PULSE 78–114; RESP 16–20; TEMP 36.3–36.6; O2SAT 92–100; BMI 14.8
--- NOTE | 2024-09-17 21:14 | XRR_ITS ---
PROCEDURE INFORMATION: Exam: XR Chest Exam date and time: 09/17/2024 9:21 PM Age: 64 years old Clinical indication: Other: Weakness TECHNIQUE: Imaging protocol: Radiologic exam of the chest. Views: 1 view. COMPARISON: CR (CHEST, ) 08/29/2024 6:26 PM FINDINGS: Lungs: Mild bibasilar opacities likely predominantly due to compressive atelectasis , likely increased in comparison to 08/29/2024 CT, with or without superimposed consolidation in the appropriate clinical setting. Pleural spaces: Mild bilateral pleural effusions. Heart/Mediastinum: Unremarkable. No cardiomegaly. Bones/joints: Unremarkable. XR/XR chest 1V portable [id number] IMPRESSION: Mild bilateral pleural effusions and bibasilar atelectasis , appearing to have increased from 08/29/2024 CT and radiograph. Superimposed pneumonic consolidation may be considered in the appropriate clinical setting.
--- NOTE | 2024-09-17 21:16 | ECG_ITS ---
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 Measurements Intervals [place] Rate: 102 P: 73 ME: 145 QRS: 39 QRSD: 70 T: 191 QT: 282 QTc: 368 Interpretive Statements SINUS TACHYCARDIA LOW QRS VOLTAGE [QRS DEFLECTION < 0.5/1.0 mV IN LIMB/CHEST LEADS] SEPTAL MYOCARDIAL INFARCTION , PROBABLY OLD [40+ ms Q WAVE IN V1/V2] Compared to ECG 12/29/2019 15:10:29 Low QRS voltage now present Myocardial infarct finding now present Sinus rhythm no longer present Electronically Signed On 09-18-2024 12:32:08 CDT by Maria Luz Simons M.D. [email or web address]
--- NOTE | 2024-09-17 21:24 | W.ED.WEAKNES ---
HPI - Weakness General: Chief complaint: Weakness Stated complaint: weakness Time Seen by Provider: 09/17/24 21:11 History of Present Illness: 64-year-old female with a history of cirrhosis who presents emergency room with generalized weakness. Family says they tried to get her out of bed today according to EMS and that she was too weak to stand. She is supposed to go for paracentesis tomorrow but they did not feel like they were going to be able to get her to there so they called an ambulance. She has no focal abdominal pain on exam. She has some mild tremor in her hands. She answers questions appropriately. No focal motor deficits. No known fevers. No vomiting. Says she is been taking her lactulose as she is supposed to. Review of Systems Narrative: Constitutional symptoms: Negative except as documented in HPI. Skin symptoms: Negative except as documented in HPI. Eye symptoms: Negative except as documented in HPI. ENMT symptoms: Negative except as documented in HPI. Respiratory symptoms: Negative except as documented in HPI. Cardiovascular symptoms: Negative except as documented in HPI. Gastrointestinal symptoms: Negative except as documented in HPI. Genitourinary symptoms: Negative except as documented in HPI. Musculoskeletal symptoms: Negative except as documented in HPI. Neurologic symptoms: Negative except as documented in HPI. Psychiatric symptoms: Negative except as documented in HPI. Endocrine symptoms: Negative except as documented in HPI. PFSH ED PFSH: Medical History (Updated 09/17/24 @ 23:26 by Erika Anderson MD) Radius distal fracture (12/2021) Bilateral History of endometriosis Anxiety Hypothyroidism Raynauds disease Iron deficiency anemia Surgical History (Updated 09/12/24 @ 15:26 by Mayito Campbell) History of joint replacement Right thumb History of laparoscopy x 5, for endometriosis History of tonsillectomy Family History Father Diving accident Mother Dementia Heart disease Grandmother Lung cancer Social History Smoking and tobacco/nicotine status: never used tobacco/nicotine Alcohol intake: current Alcohol intake frequency: 0-2 Drinks per Day Alcohol type: wine Substance/Drug Use: never Physical Exam Narrative: EXAM NARRATIVE: General: Patient is extremely cachectic, ill-appearing Skin: Warm, dry. Jaundice Head: Normocephalic, atraumatic. Neck: Supple, trachea midline. Eye: Extraocular movements are intact. Ears, nose, mouth and throat: mucosa moist. Cardiovascular: Regular, Normal peripheral perfusion. Respiratory: Lungs are clear to auscultation, respirations are non-labored, breath sounds are equal, Symmetrical chest wall expansion. Gastrointestinal: Mild abdominal distention, soft, no focal or diffuse abdominal tenderness to palpation. Musculoskeletal: Normal ROM, no deformity. Neurological: Alert and oriented, No focal neurological deficit observed. Psychiatric: Cooperative, appropriate mood & affect. Course Vital Signs: Vital signs: Vital Signs Temperature 97.9 F 09/17/24 23:15 Pulse Rate 111 H 09/17/24 23:17 Respiratory Rate 16 09/17/24 23:17 Blood Pressure 87/72 09/17/24 23:17 Pulse Oximetry 93 09/17/24 23:17 Oxygen Delivery Me thod Room Air 09/17/24 23:17 MDM - Weakness Medical Decision Making Medical decision making: Differential diagnosis for patient presenting with generalized weakness including but not limited to and based on the above HPI, review of systems and physical exam: Sepsis. Dehydration. Renal failure. Electrolyte abnormalities. Anemia. Congestive heart failure. Hypotension. Coronary syndrome. Hepatitis. Cirrhosis. Infections such as pneumonia, urinary tract infection, [place] bourne illness, Cellulitis, Viral infections including influenza and Covid-19. Workup: labwork and lab/exam driven imaging ordered to evaluate, rule in and rule out above pathologies. Lab Review: Laboratory results were reviewed and interpreted by myself the emergency room physician. Hemoglobin is back to 5.6. Patient's baseline prior to cirrhosis diagnosis was always around 6-8. Oncology reported no signs of bleeding 4 days ago and she has had none in the last few days according to her and family. No vomiting. No hematemesis. No black tarry stools. Mean and creatinine are at or slightly above her baseline at 22 and 1.5. Sodium is up a little bit from previous at 123. She does have some leukocytosis with a white count of 16,000 and her lactate of 7.5. I am giving cefepime. Chest x-ray: Mild bilateral pleural effusions and atelectasis. This may be a little increased from 3 6. This was reviewed and interpreted by myself the emergency room physician. I also reviewed the radiology report. I reviewed the patient's medical record. Reexamination: Patient is remained fairly stable. Blood pressure has been at or near baseline, a little soft. Discussed findings and plan with family. They prefer to stay here and just received blood and maybe get a paracentesis. No signs of active bleeding. Consultation: I spoke with Dr. Bowie who agrees to admission. He request a consult to general surgery in case patient does need an EGD. Consultation: I spoke with Dr. Park who will consult on the patient if needed. He understands she might have esophageal varices. Assessment and plan: Anemia Weakness Hyponatremia Ascites Lactic acidosis Possible sepsis ?2 units PRBCs have been ordered. Attempting to get records from [facility] - patient is receiving 50 cc of fluid and blood. Holding on any other fluids. -Giving cefepime for possible SBP given her leukocytosis and lactic acidosis. However her exam is not very convincing for this. Likely she can have a therapeutic and diagnostic tap tomorrow. -Sepsis quality measures. -Lactic acid with a reflex was ordered. -Blood cultures were ordered. -I discussed the patient with the hospitalist on-call who is admitting the patient. - Discussed findings and plan with patient. Answered any questions. - All laboratory values were reviewed and interpreted personally by myself, the ER physician - All imaging was reviewed and interpreted personally by myself, the ER physician. - Evaluation and treatment of this problem were appropriate in the emergency setting Lab Data 09/17/24 21:31 09/17/24 21:31 Radiology Impressions Chest X-Ray 09/17/24 21:14 IMPRESSION: Mild bilateral pleural effusions and bibasilar atelectasis , appearing to have increased from 08/29/2024 CT and radiograph. Superimposed pneumonic consolidation may be considered in the appropriate clinical setting. Laboratory Results WBC 16.21 10^3/uL (3.29-11.43) H 09/17/24 21: RBC 1.90 10^6/uL (3.85-5.65) L 09/17/24 21: Hgb 5.60 g/dL (11.27-16.99) L* 09/17/24 21: Hct 16.9 % (36-47) L* 09/17/24 21: MCV 88.9 fl (85-98) 09/17/24 21:31 MCH 29.5 pg (27-33) 09/17/24 21: MCHC 33.1 g/dL (30-55) 09/17/24 21: RDW 21.6 % (12.1-15.1) H 09/17/24 21: Plt Count 237 10^3/cmm (157-399) 09/17/24 21: MPV 10.8 fL (7.4-10.4) H 09/17/24 21: Neut % (Auto) 70.5 % 09/17/24 21: Lymph % (Auto) 20.9 % 09/17/24 21: [place] % (Auto) 7.6 % 09/17/24: Eos % (Auto) 0.0 % 09/17/24 21: Baso % (Auto) 0.3 % 09/17/24: Neut # (Auto) 11.42 10^3/uL (1.8-7.7) H 09/17/24: Lymph # (Auto) 3.4 10^3/uL (0.8-4.8) 09/17/24 21: [place] # (Auto) 1.2 10^3/uL (0.2-0.9) H 09/17/24 21: Eos # (Auto) 0.0 10^3/uL (0.0-0.8) 09/17/24 21: Baso # (Auto) 0.1 10^3/uL (0.0-0.1) 09/17/24: Nucleated RBC % (auto) 0 % 09/17/24: Nucleated RBCs # 0.0 /100WBC 09/17/24 21: Sodium 123 mmol/L (136-145) L 09/17/24 21: Potassium 4.2 mmol/L (3.5-5.1) 09/17/24 21: Chloride 89 mmol/L (98-107) L 09/17/24 21: Carbon Dioxide 16 mmol/L (22-29) L 09/17/24: Anion Gap 22.2 (5-19) H 09/17/24: BUN 22 mg/dL (8-23) 09/17/24 21: Creatinine 1.5 mg/dL (0.5-0.9) H 09/17/24 21: GFR Calculation 35.1 mL/min (90-130) L 09/17/24: Glucose 134 mg/dL (65-115) H 09/17/24 21: Calculated Osmolality 261 mOsm/kg (285-295) L 09/17/24 21: Lactic Acid 7.5 mmol/L (0.5-2.2) H* 09/17/24: Calcium 8.1 mg/dL (8.5-10.5) L 09/17/24: Total Bilirubin 3.6 mg/dL (0.15-1.2) H 09/17/24: AST 60 U/L (0-32) H 09/17/24: ALT 27 U/L (0-33) 09/17/24: Alkaline Phosphatase 179 U/L (35-105) H 09/17/24: Ammonia 25 umol/L (11-51) 09/17/24: Troponin T Baseline 39 ng/L (0-10) H 09/17/24 21: Total Protein 6.3 g/dL (6.6-8.7) L 09/17/24 21: Albumin 2.3 g/dL (3.5-5.2) L 09/17/24 21: Globulin 4.0 g/dL (1.3-4.6) 09/17/24 21: Urine Color [place] (Yellow) A 09/17/24 22: Urine Appearance Cloudy (CLEAR) A 09/17/24 22: Urine pH 5.0 (5-7) 09/17/24 22: Ur Specific [place] 1.020 (1.005-1.030) 09/17/24 22: Urine Protein 1+ (Negative) A 09/17/24 22: Urine Glucose (UA) Negative (Normal) 09/17/24 22: Urine Ketones Negative (Negative) 09/17/24 22: Urine Blood Trace (Negative) A 09/17/24 22: Urine Nitrate Negative (Negative) 09/17/24 22: Urine Bilirubin 2+ (Negative) H 09/17/24 22:04 Urine Urobilinogen 1.0 mg/dL (Negative) 09/17/24 22:04 Ur Leukocyte Esterase 1+ (Negative) A 09/17/24 22:04 Urine RBC None /hpf (0-2) 09/17/24 22:04 Urine WBC 0-4 /hpf (0-5) H 09/17/24 22:04 Ur Squamous Epith Cells 10-15 /hpf (0-5) H 09/17/24 22:04 Amorphous Sediment Not Reportable 09/17/24 22:04 Urine Bacteria Trace /hpf (NONE) 09/17/24 22:04 Hyaline Casts 5-10 /lpf H 09/17/24 22:04 Ethyl Alcohol < 10 mg/dL (0-10) 09/17/24 21:31 Influenza A (PCR) Negative (Negative) 09/17/24 21:45 Influenza Type B (PCR) Negative (Negative) 09/17/24 21:45 RSV (PCR) Negative (Negative) 09/17/24 21:45 SARS-CoV-2 (PCR) Negative (Negative) 09/17/24 21:45 Blood Type A Positive 09/17/24 21:52 Rho(D) Type Rh positive 09/17/24 21:52 Antibody Screen Negative 09/17/24 21:52 Crossmatch See Detail 09/17/24 21:52 All radiology interpretation(s) finalized by discharge Discharge Plan Discharge Patient Disposition: Admitted As Inpatient Admit Provider: Horacio Bowie Clinical Impression: Anemia, Ascites, Alcoholic cirrhosis, Hyponatremia, Lactic acidosis Condition: Stable Coding Level of Care Code ED Pig Iron Loader for Chg Fwd Related Data Home Medications ?Medication ?Instructions ?Recorded ?Confirmed tramadol 50 mg tablet 50 mg PO BID PRN Pain 12/29/19 09/12/24 cholecalciferol (vitamin D3) 62.5 mcg PO 09/25/23 09/12/24 mcg (2,500 unit) capsule epinephrine 0.3 mg/0.3 mL 0.3 mg IM Q4H PRN 09/25/23 09/12/24 injection, auto-injector famotidine 20 mg tablet 20 mg PO DAILY 09/25/23 09/12/24 paroxetine HCl 20 mg tablet 20 mg PO DAILY 09/25/23 09/12/24 vitamin B complex-folic acid 0.4 1 tab PO DAILY 09/25/23 09/12/24 mg tablet (Super B Maxi Complex) alprazolam 0.25 mg tablet 0.25 mg PO TID PRN 09/12/24 09/12/24 amlodipine 5 mg tablet 2.5 mg PO DAILY 09/12/24 09/12/24 levothyroxine 25 mcg tablet 50 mcg PO DAILY 09/12/24 09/12/24 pantoprazole 40 mg tablet,delayed 40 mg PO BID 09/12/24 09/12/24 release zolpidem 10 mg tablet (Ambien) 5 mg PO BEDTIME 09/12/24 09/12/24 Allergies Allergy/AdvReac Type Severity Reaction Status Date / Time bee venom protein (honey bee) Allergy Severe ALGY-Anaphy Verified 09/17/24 21:28 laxis Iodinated Contrast Media Allergy Mild ADR-Dizzine Verified 09/17/24 21:28 ss/Nausea Iodine and Iodide Containing Allergy ADR-Halluci Verified 09/17/24 21:28 Suni nunez
[2024-09-17 21:42] LABS: Basophils # 0.1 10^3/uL (0.0-0.1); Basophils % 0.3 %; Lymphocytes # 3.4 10^3/uL (0.8-4.8); Lymphocytes % 20.9 %; Mean Corpuscular HGB Conc 33.1 g/dL (30-55); Mean Corpuscular Hemoglobin 29.5 pg (27-33); Mean Corpuscular Volume 88.9 fl (85-98); Mean Platelet Volume 10.8 fL (7.4-10.4); Monocytes # 1.2 10^3/uL (0.2-0.9); Monocytes % 7.6 %; Neutrophils # 11.42 10^3/uL (1.8-7.7); Neutrophils % 70.5 %; Nucleated Red Blood Cells % 0 %; Platelet Count 237 10^3/cmm (157-399); Red Cell Distribution Width 21.6 % (12.1-15.1); White Blood Count 16.21 10^3/uL (3.29-11.43)
[2024-09-17 21:46] LABS: Hematocrit 16.9 % (36-47)
[2024-09-17 22:04] LABS: Troponin(5th) Baseline 39 ng/L (0-10)
[2024-09-17 22:05] LABS: Ammonia 25 umol/L (11-51)
[2024-09-17 22:06] LABS: Alanine Aminotransferase 27 U/L (0-33); Albumin Level 2.3 g/dL (3.5-5.2); Alcohol Level < 10 mg/dL (0-10); Alkaline Phosphatase 179 U/L (35-105); Anion Gap 22.2 (5-19); Aspartate Amino Transferase 60 U/L (0-32); Blood Urea Nitrogen 22 mg/dL (8-23); Calcium 8.1 mg/dL (8.5-10.5); Carbon Dioxide 16 mmol/L (22-29); Chloride 89 mmol/L (98-107); Creatinine Clr Calc Pharmacy 25.2892; Glomerular Filtration Rate 35.1 mL/min (90-130); Glucose 134 mg/dL (65-115); Osmolality Calculated 261 mOsm/kg (285-295); Potassium 4.2 mmol/L (3.5-5.1); Sodium 123 mmol/L (136-145); Total Bilirubin 3.6 mg/dL (0.15-1.2); Total Protein 6.3 g/dL (6.6-8.7)
[2024-09-17 22:12] LABS: Bilirubin Urine 2+ (Negative); Blood Urine Trace (Negative); Glucose Urine UA Negative (Normal); Ketones Urine Negative (Negative); Leukocyte Esterase Urine 1+ (Negative); Protein Urine 1+ (Negative); Urine Appearance Cloudy (CLEAR)
[2024-09-17 22:16] LABS: Lactic Sepsis W/Reflex 7.5 mmol/L (0.5-2.2)
--- NOTE | 2024-09-17 22:34 | PM.HP ---
Providers/Chief Complaint Primary Care Provider: Meo Carrillo DO Chief Complaint: weakness History of Present Illness Mirna Tobias is a 64 year old female with history of alcohol-related liver cirrhosis, spent a week at [facility] for decompensated liver cirrhosis, EGD and colonoscopy was done, as per the family they were told about esophageal varices and possible gastritis/esophagitis she was discharged on Protonix, her last alcohol drink was 90 days ago, she got discharged on 09/05, presented to the hospital for worsening of generalized weakness and fatigue. Patient has been noticing blood. Per rectum stating that she has hemorrhoids and every time she is using toilet her toilet would get filled up with bright red blood. She has not noticed any dark starry stools. No active vomiting or blood in vomiting. She also had paracentesis done at [facility], she is not sure about the quantity. Patient is stating that she was discharged on Protonix and was asked to discontinue amlodipine. She also stopped taking prednisone. At home she is not doing well poor appetite, disturbed sleep cycle, lack of energy,. Workup in the ER consistent with severe anemia, no active bleed, MAP 70, I have requested ICU bed requested 2 unit PRBC start ceftriaxone 2 g General Surgery was notified and they were okay with keeping patient here for possible colonoscopy and EGD Requesting records from [facility] Discussed goals of care with the patient in front of her family: She is full code I will request DIC panel to calculate MELD score Review of Systems Const: Denies: fever(s) Eyes: Reports: change in vision ENMT: Denies: throat pain Card: Denies: chest pain Resp: Denies: dyspnea GI: Reports: abdominal pain and nausea : Denies: flank pain Musc: Reports: back pain Neuro: Reports: weakness in extremities Psych: Reports: sleeping less Medications/Allergies Home Medications ?Medication ?Instructions ?Recorded ?Confirmed ?Last Taken ?Type tramadol 50 mg tablet 50 mg PO BID PRN Pain 12/29/19 09/12/24 Unknown History cholecalciferol (vitamin D3) 62.5 mcg PO 09/25/23 09/12/24 Unknown History mcg (2,500 unit) capsule epinephrine 0.3 mg/0.3 mL 0.3 mg IM Q4H PRN 09/25/23 09/12/24 Unknown History injection, auto-injector famotidine 20 mg tablet 20 mg PO DAILY 09/25/23 09/12/24 Unknown History paroxetine HCl 20 mg tablet 20 mg PO DAILY 09/25/23 09/12/24 Unknown History vitamin B complex-folic acid 0.4 1 tab PO DAILY 09/25/23 09/12/24 Unknown History mg tablet (Super B Maxi Complex) alprazolam 0.25 mg tablet 0.25 mg PO TID PRN 09/12/24 09/12/24 Unknown History amlodipine 5 mg tablet 2.5 mg PO DAILY 09/12/24 09/12/24 Unknown History levothyroxine 25 mcg tablet 50 mcg PO DAILY 09/12/24 09/12/24 Unknown History pantoprazole 40 mg tablet,delayed 40 mg PO BID 09/12/24 09/12/24 Unknown History release zolpidem 10 mg tablet (Ambien) 5 mg PO BEDTIME 09/12/24 09/12/24 Unknown History Allergies Allergy/AdvReac Type Severity Reaction Status Date / Time bee venom protein (honey bee) Allergy Severe ALGY-Anaphy Verified 09/17/24 21:28 laxis Iodinated Contrast Media Allergy Mild ADR-Dizzine Verified 09/17/24 21:28 ss/Nausea Iodine and Iodide Containing Allergy ADR-Halluci Verified 09/17/24 21:28 Produc nating PFSH Acute PFSH: Medical History (Updated 09/17/24 @ 23:52 by Horacio Bowie MD) Hiatal hernia Acute hemorrhoid Radius distal fracture (12/2021) Bilateral History of endometriosis Anxiety Hypothyroidism Raynauds disease Iron deficiency anemia Surgical History (Updated 09/17/24 @ 23:52 by Horacio Bowie MD) Hx of colonoscopy History of joint replacement Right thumb History of laparoscopy x 5, for endometriosis History of tonsillectomy Family History Father Diving accident Mother Dementia Heart disease Grandmother Lung cancer Social History Smoking and tobacco/nicotine status: never used tobacco/nicotine Alcohol intake: current Alcohol intake frequency: 0-2 Drinks per Day Alcohol type: wine Substance/Drug Use: never Vitals/I&O/Wt Last Vital Signs Temp 97.4 F L 09/17/24 21:10 Pulse 100 09/17/24 22:16 Resp 18 09/17/24 22:16 BP 96/71 09/17/24 22:16 Pulse Ox 92 09/17/24 22:16 O2 Del Method Room Air 09/17/24 22:16 09/17/24 09/17/24 09/17/24 06:59 14:59 22:59 Intake Total 0 / 0 Balance 0 / 0 Weight last 48 hrs Weight 41.73 kg Physical Exam Narrative: Patient has scleral icterus Jaundice Awake and alert GCS 15 No active encephalopathy Able to follow commands Abdomen nondistended nontender Pleasant and cooperative No active focal deficit S1, S2 tachycardia Currently on room air Lower extremity trace edema No active skin ulcers Data 09/17/24 21:31 09/17/24 21:31 Micro: Microbiology 09/17/24 21:35 Blood Culture - Preliminary Blood SPECIMEN COLLECTED 09/17/24 21:31 Blood Culture - Preliminary Blood SPECIMEN COLLECTED A&P Assessment and plan (1) Alcoholic cirrhosis: (2) Lactic acidosis: (3) Anemia: (4) Fatigue: (5) Cirrhosis: (6) Gastroesophageal reflux disease: (7) Hyponatremia: (8) Protein calorie malnutrition: (9) SONYA (acute kidney injury): (10) Hematochezia: Plan Decompensated liver cirrhosis Patient is jaundiced Not able to calculate MELD score I do not have PT/INR values at this point Ammonia level is not high No abdominal tenderness however considering signs of portal hypertension I will keep her on ceftriaxone 2 g daily Acute on chronic anemia History of iron deficiency as well Patient endorsing black tarry per rectum/hematochezia Not endorsing melena or hematemesis Has portal hypertension as per recent EGD Requesting records from [facility] for recent EGD and colonoscopy Continue Protonix Requesting 2 unit PRBC Will keep on clear liquid diet Patient is endorsing history of hemorrhoids as well High lactic acid secondary to liver disorder and hypotension due to anemia Admit to ICU Avoid antihypertensive regimen Will add midodrine Will administer albumin as well once her blood transfusion is finished History of hypothyroidism: Continue levothyroxine Hypervolemic hyponatremia Bilirubin is also high Blood pressure too low to start spironolactone or Lasix Full code Clear liquid diet General Surgery consulted DVT prophylaxis contraindicated with anticoagulating agent: SCDs for now Patient has an appointment to follow-up for an EGD at [facility] likely in mid September with GI PDMP PDMP Reviewed: Not Reviewed Attestations Medical Necessity Statement*: More than 2 midnights anticipated Diagnoses Alcoholic cirrhosis K70.30 Lactic acidosis E87.20 Anemia D64.9 Fatigue R53.83 Cirrhosis K74.60 Gastroesophageal reflux disease K21.9 Hyponatremia E87.1 Protein calorie malnutrition E46 SONYA (acute kidney injury) N17.9 Hematochezia K92.1
[2024-09-17 22:48] LABS: Influenza A NEGATIVE (Negative); Influenza B NEGATIVE (Negative); Respiratory Syncytial Virus Ce NEGATIVE (Negative); SARS-CoV-2 PCR NEGATIVE (Negative)
[2024-09-17] MEDS: cefepime 2,000 mg SDV 2000 MG IVP (22:58)
[2024-09-17 23:04] LABS: Nitrate Urine Negative (Negative); UA Manual Slide Review YES; UA Slide Review UA Slide Review Perf; Urine Color Orange (Yellow)
[2024-09-17 23:05] LABS: Bacteria Urine TRACE /hpf; WBC Urine 0-4 /hpf (0-5)
[2024-09-17] MEDS: sodium chloride 0.9% 100 mL Bag 50 ML IV (23:16)
[2024-09-17 23:27] LABS: Reflex Lactate Order REFLEX LACTIC ORDERD
[2024-09-18] VITALS (67 sets, daily range): BP systolic 82–127; BP diastolic 56–89; PULSE 65–108; RESP 10–25; TEMP 36.3–36.8; O2SAT 70–100
[2024-09-18 00:09] LABS: Troponin 5 2HR 37.99 ng/L (0-10)
[2024-09-18 00:11] LABS: Troponin 5 2HR Delta -1.01 ABS# (0-10)
[2024-09-18 00:35] LABS: Vitamin B12 1911 pg/mL (232-1245)
--- NOTE | 2024-09-18 03:19 | ECG_ITS ---
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 Measurements Intervals [place] Rate: 97 P: 75 VT: 139 QRS: -6 QRSD: 73 T: 50 QT: 388 QTc: 494 Interpretive Statements SINUS RHYTHM LOW QRS VOLTAGE [QRS DEFLECTION < 0.5/1.0 mV IN LIMB/CHEST LEADS] SEPTAL MYOCARDIAL INFARCTION , PROBABLY OLD [40+ ms Q WAVE IN V1/V2] Compared to ECG 09/17/2024 22:19:17 Sinus tachycardia no longer present Myocardial infarct finding still present Electronically Signed On 09-19-2024 22:26:46 CDT by Maria Luz Simons M.D. [email or web address]
[2024-09-18 07:24] LABS: Reflex FDPQ test REFLEX FDP QUEST TES
[2024-09-18 07:27] LABS: Basophils # 0.1 10^3/uL (0.0-0.1); Basophils % 0.4 %; Eosinophils # 0.6 10^3/uL (0.0-0.8); Eosinophils % 3.1 %; Lymphocytes # 3.7 10^3/uL (0.8-4.8); Lymphocytes % 20.6 %; Mean Corpuscular HGB Conc 33.9 g/dL (30-55); Mean Corpuscular Hemoglobin 29.8 pg (27-33); Monocytes # 1.7 10^3/uL (0.2-0.9); Monocytes % 9.5 %; Neutrophils # 11.76 10^3/uL (1.8-7.7); Neutrophils % 65.3 %; Nucleated Red Blood Cells % 0 %; Platelet Count 158 10^3/cmm (157-399); Red Blood Count 3.49 10^6/uL (3.85-5.65); Red Cell Distribution Width 17.7 % (12.1-15.1); White Blood Count 17.99 10^3/uL (3.29-11.43)
[2024-09-18 07:43] LABS: Hematocrit 30.7 % (36-47)
[2024-09-18 07:48] LABS: INR 1.57 (0.8-1.2)
[2024-09-18 07:49] LABS: Partial Thromboplastin Time 36.9 SECONDS (23.9-36.7)
[2024-09-18 07:53] LABS: Alanine Aminotransferase 24 U/L (0-33); Albumin Level 2.3 g/dL (3.5-5.2); Alkaline Phosphatase 168 U/L (35-105); Anion Gap 16.7 (5-19); Aspartate Amino Transferase 60 U/L (0-32); Blood Urea Nitrogen 25 mg/dL (8-23); Calcium 8.1 mg/dL (8.5-10.5); Carbon Dioxide 19 mmol/L (22-29); Chloride 92 mmol/L (98-107); Creatinine Clr Calc Pharmacy 28.6728; Globulin 3.6 g/dL (1.3-4.6); Glomerular Filtration Rate 41.4 mL/min (90-130); Glucose 103 mg/dL (65-115); Magnesium 2.1 mg/dL (1.7-2.3); Osmolality Calculated 261 mOsm/kg (285-295); Phosphorus 4.6 mg/dL (2.5-4.5); Potassium 4.7 mmol/L (3.5-5.1); Sodium 123 mmol/L (136-145); Total Bilirubin 6.4 mg/dL (0.15-1.2); Total Protein 5.9 g/dL (6.6-8.7)
[2024-09-18 07:54] LABS: Troponin 5 6HR 33.13 ng/L (0-10)
[2024-09-18 07:59] LABS: D Dimer 10.73 ug/mLFEU (0-0.59)
[2024-09-18] MEDS: levothyroxine 25 mcg Tablet 50 MCG PO (08:07)
[2024-09-18] MEDS: rifaximin 200 mg Tablet 600 MG PO (08:07)
[2024-09-18] MEDS: pantoprazole 40 mg SDV IVP ×2 (08:08→17:56)
[2024-09-18] MEDS: cefTRIAXone 2,000 mg SDV 2000 MG IVP (08:08)
[2024-09-18 08:10] LABS: Troponin 5 6HR Delta -5.87 ng/L (0-12)
--- NOTE | 2024-09-18 08:37 | PM.MISC ---
Miscellaneous Note Note: Full consult note to follow. This is an acutely decompensated cirrhotic. Recommend transfer to higher level of care for hepatology/GI medical management of decompensation.
[2024-09-18 08:45] LABS: Fibrinogen 111 mg/dL (174-498)
[2024-09-18] MEDS: albumin 12.5 GM/250 ML VIAL IV (10:24)
[2024-09-18] MEDS: lactulose oral liq 20 gm/30 mL UDC PO (10:24)
--- NOTE | 2024-09-18 11:05 | PC.NURSE ---
Dr. Barroso at bedside to perform US guided paracentesis to right lower abdomen. Time out complete. Beginning VS documented. 1600 mL clear reji fluid removed and sent to lab. 2x2 and bandaid applied to RLQ. Pt tolerated well.
--- NOTE | 2024-09-18 12:52 | PM.CONSULT ---
Providers/Reason For Consult Consulting Physician/Specialty*: Dr. Park general surgery Reason for Consult*: Cirrhosis Attending Physician: Joy Gomez MD Primary Care Provider: Moe Carrillo DO History of Present Illness History of Present Illness Mirna Tobias is a 64 year old female history of cirrhosis whom surgery was consulted for drop in hemoglobin. No clinical evidence of GI bleed. However patient came with a hemoglobin drop. Noncirrhotic and recently treated for SBP Recently scoped in [facility] where she gets her care. Medications/Allergies Home Medications ?Medication ?Instructions ?Recorded ?Confirmed ?Last Taken ?Type paroxetine HCl 20 mg tablet 20 mg PO DAILY 09/25/23 09/18/24 Unknown History levothyroxine 25 mcg tablet 50 mcg PO DAILY 09/12/24 09/18/24 Unknown History pantoprazole 40 mg tablet,delayed 40 mg PO BID 09/12/24 09/18/24 Unknown History release zolpidem 10 mg tablet (Ambien) 5 mg PO BEDTIME 09/12/24 09/18/24 Unknown History Allergies Allergy/AdvReac Type Severity Reaction Status Date / Time bee venom protein (honey bee) Allergy Severe ALGY-Anaphy Verified 09/17/24 21:28 laxis Iodinated Contrast Media Allergy Mild ADR-Dizzine Verified 09/17/24 21:28 ss/Nausea Iodine and Iodide Containing Allergy ADR-Halluci Verified 09/17/24 21:28 Produc nating Current Medications Generic Name Dose Route Start Last Admin Trade Name Freq PRN Reason Stop Dose Admin Ceftriaxone Sodium 2,000 mg 09/18/24 09:00 09/18/24 08:08 Ceftriaxone 2,000 Mg Sdv IVP 2,000 mg Q24H CHUY Administration Protocol Lactulose 20 gm 09/18/24 11:00 09/18/24 10:24 Lactulose Oral Liq 20 Gm/30 Ml Udc PO 20 gm Q12H CHUY Administration Levothyroxine Sodium 50 mcg 09/18/24 07:00 09/18/24 08:07 Levothyroxine 25 Mcg Tablet PO 50 mcg ACBREAKFAST CHUY Administration Pantoprazole Sodium 40 mg 09/18/24 09:00 09/18/24 08:08 Pantoprazole 40 Mg Sdv IVP 40 mg BID CHUY Administration Rifaximin 600 mg 09/18/24 09:00 09/18/24 08:07 Rifaximin 200 Mg Tablet PO 600 mg BID CHUY Administration Sodium Chloride 50 ml 09/17/24 21:49 09/17/24 23:16 Sodium Chloride 0.9% 100 Ml Bag IV 09/18/24 21:49 50 ml PRN PRN Administration Blood transfusion prime and flush PFSH Acute PFSH: Medical History (Updated 09/17/24 @ 23:52 by Horacio Bowie MD) Hiatal hernia Acute hemorrhoid Radius distal fracture (12/2021) Bilateral History of endometriosis Anxiety Hypothyroidism Raynauds disease Iron deficiency anemia Surgical History (Updated 09/17/24 @ 23:52 by Horacio Bowie MD) Hx of colonoscopy History of joint replacement Right thumb History of laparoscopy x 5, for endometriosis History of tonsillectomy Family History Father Diving accident Mother Dementia Heart disease Grandmother Lung cancer Social History Smoking and tobacco/nicotine status: never used tobacco/nicotine Alcohol intake: current Alcohol intake frequency: 0-2 Drinks per Day Alcohol type: wine Substance/Drug Use: never Vitals/I&O/Wt Last Vital Signs Temp 98.3 F 09/18/24 09:01 Pulse 94 09/18/24 11:13 Resp 18 09/18/24 11:13 BP 107/74 09/18/24 11:13 Pulse Ox 100 09/18/24 11:13 O2 Del Method Room Air 09/18/24 11:13 09/17/24 09/18/24 09/18/24 22:59 06:59 14:59 Intake Total 0 / 0 350 / 350 1600 / 1600 Output Total 100 / 100 Balance 0 / 0 250 / 250 1600 / 1600 Weight last 48 hrs Weight 90 lb 6.4 oz Weight 89 lb 4.595 oz Weight 92 lb Physical Exam Narrative: \Chest: NC Heart: Regular rate and rhythm. Abdomen: Soft, nontender, nondistended. No masses or lymphadenopathy. Data 09/18/24 07:14 09/18/24 07:14 Micro: Microbiology 09/17/24 21:35 Blood Culture - Preliminary Blood SPECIMEN COLLECTED 09/17/24 21:31 Blood Culture - Preliminary Blood SPECIMEN COLLECTED A&P Assessment and plan (1) Anemia: (2) Cirrhosis: Plan 64-year-old female who presented with anemia. History of cirrhosis and currently decompensated. No clinical evidence of GI bleed. Recommend holding off on scope. Recommend transferring to higher level of care for management of decompensated cirrhosis by GI/hepatology provider. PDMP PDMP Reviewed: Not Reviewed Coding Level of Care Code 82996 Diagnoses Anemia D64.9 Cirrhosis K74.60
--- NOTE | 2024-09-18 14:28 | PM.TDS ---
Transfer Summary Providers Date of Admission: 09/17/24 22:48 Date of Discharge/Transfer: 09/18/24 Attending Provider at Admission: Horacio Bowie MD Attending Provider at Transfer: Joy Gomez MD Primary Care Provider: Moe Carrillo DO Transfer Plans: Anticipated date of transfer: 09/18/24. Receiving Facility: [facility]. Receiving Provider: Dr. Ferrell. Diagnoses at Discharge Discharge Diagnosis (1) Anemia: Status: Acute (2) Cirrhosis: Status: Inactive Reason for Visit Reason for Visit weakness Brief History: As per Dr. Bowie, Mirna Tobias is a 64 year old female with history of alcohol-related liver cirrhosis, spent a week at [facility] for decompensated liver cirrhosis, EGD and colonoscopy was done, as per the family they were told about esophageal varices and possible gastritis/esophagitis she was discharged on Protonix, her last alcohol drink was 90 days ago, she got discharged on 09/05, presented to the hospital for worsening of generalized weakness and fatigue. Patient has been noticing blood. Per rectum stating that she has hemorrhoids and every time she is using toilet her toilet would get filled up with bright red blood. She has not noticed any dark starry stools. No active vomiting or blood in vomiting. She also had paracentesis done at [facility], she is not sure about the quantity. Patient is stating that she was discharged on Protonix and was asked to discontinue amlodipine. She also stopped taking prednisone. At home she is not doing well poor appetite, disturbed sleep cycle, lack of energy,. Workup in the ER consistent with severe anemia, no active bleed, MAP 70, I have requested ICU bed requested 2 unit PRBC start ceftriaxone 2 g General Surgery was notified and they were okay with keeping patient here for possible colonoscopy and EGD Requesting records from [facility] Discussed goals of care with the patient in front of her family: She is full code I will request DIC panel to calculate MELD score Records reviewed from outside facility: Patient had 2 units received at [facility], EGD showed stricture at 37 cm, colonoscopy showed colon mucosa inflammation related to portal hypertension, external hemorrhoids and rectal prolapse Patient was also diagnosed with portal venous thrombosis with cavernous formation Hepatitis panel was negative SBP was ruled out with diagnostic paracentesis Patient was referred for repeat EGD for esophageal stricture dilatation at [facility] Course Hospital Course Patient admitted with decompensated liver cirrhosis with active jaundice. She presented with anemia with hemoglobin of 5.6. She received 2 units of packed RBC in the ER and hemoglobin now is 10.4. Patient has portal hypertension as per recent EGD. She also has history of hemorrhoids. Hypotensive on admission. Lactic acid 7.3. Avoid antihypertensive regimen. Will add midodrine and albumin. Patient bilirubin has worsened from admission. On admission it was 3.6 now it is trended up to 6.4. Secondary to hypotension we have not given her spironolactone or Lasix. General surgery was consulted from the ER who evaluated the patient this morning. They recommend transferring to higher level of care for management of decompensated cirrhosis or gastroenterology services would be available. General surgery recommend holding off on EGD colonoscopy at this time. There is no clinical evidence of GI bleed. Patient underwent paracentesis today. 1600 cc removed. Fluid sent for cytology. 2 weeks ago at [facility] patient was advised to take budesonide for collagenous colitis however patient's sister states that they later received a phone call advising patient not to take budesonide. They were unable to fill it at the pharmacy after discharge anyway. There was suspicion of SBP and patient was treated for the same. Patient is supposed be following up with gastroenterology in [place] going forward as it is closer to their home. They do not have an appointment yet. Her primary care doctor is currently coordinating the above. Discussed with María DASILVA. Patient has been accepted by [employer], Dr. Ferrell. Instructions to keep patient NPO, Place on rocephin, PPI, octreotide. Will inform nurse of above orders. Physical Exam Narrative: Patient has scleral icterus Jaundice Awake and alert GCS 15 No active encephalopathy Able to follow commands Abdomen nondistended nontender Pleasant and cooperative No active focal deficit S1, S2 tachycardia Currently on room air Lower extremity trace edema No active skin ulcers TS Data Studies Completed and Pending Pending at discharge Category Date Time Status Amylase, Peritoneal Fluid Routine Lab 09/18/24 11:15 Received Albumin Body Fluid Routine Lab 09/18/24 11:15 Received Anaerobic Culture Routine Lab 09/18/24 11:15 Received Blood Culture Stat Lab 09/17/24 21:35 Results Body Fluid Analysis Routine Lab 09/18/24 11:15 Received Body Fluid Culture & GS Routine Lab 09/18/24 11:15 Received Body Fluid Specific [place] Routine Lab 09/18/24 11:15 Received Cholesterol Body Fluid Routine Lab 09/18/24 11:15 Received Cyto Order Verification Routine Lab 09/18/24 11:15 Received Fibrinogen Degradation Product Routine Lab 09/18/24 07:24 Received Fluid Alkaline Phos. Routine Lab 09/18/24 11:15 Received Glucose Body Fluid Routine Lab 09/18/24 11:15 Received LDH Body Fluid Routine Lab 09/18/24 11:15 Received Mycobacteria, Culture w/Fluor Routine Lab 09/18/24 11:15 Received Total Protein Body Fluid Routine Lab 09/18/24 11:15 Received Triglycerides Body Fluid Routine Lab 09/18/24 11:15 Received Uric Acid Body Fluid Routine Lab 09/18/24 11:15 Received pH Body Fluid Routine Lab 09/18/24 11:15 Received Cytology [PTH] Routine Pth 09/18/24 11:15 Received Completed Studies During Hospitalization Category Date Time Status XR chest 1V portable [id number] Stat Exams 09/17/24 21:14 Com[place]acentesis abd w [id number] Routine Ultrasound 09/18/24 23:56 Completed Laboratory Last Values WBC 17.99 10^3/uL (3.29-11.43) H 09/18/24 07:14 RBC 3.49 10^6/uL (3.85-5.65) L 09/18/24 07:14 Hgb 10.40 g/dL (11.27-16.99) L D 09/18/24 07:14 Hct 30.7 % (36-47) L D 09/18/24 07:14 MCV 88.0 fl (85-98) 09/18/24 07:14 MCH 29.8 pg (27-33) 09/18/24 07:14 MCHC 33.9 g/dL (30-55) 09/18/24 07:14 RDW 17.7 % (12.1-15.1) H 09/18/24 07:14 Plt Count 158 10^3/cmm (157-399) D 09/18/24 07:14 MPV 11.0 fL (7.4-10.4) H 09/18/24 07:14 Neut % (Auto) 65.3 % 09/18/24 07:14 Lymph % (Auto) 20.6 % 09/18/24 07:14 [place] % (Auto) 9.5 % 09/18/24 07:14 Eos % (Auto) 3.1 % 09/18/24 07:14 Baso % (Auto) 0.4 % 09/18/24 07:14 Neut # (Auto) 11.76 10^3/uL (1.8-7.7) H 09/18/24 07:14 Lymph # (Auto) 3.7 10^3/uL (0.8-4.8) 09/18/24 07:14 Hutchinson # (Auto) 1.7 10^3/uL (0.2-0.9) H 09/18/24 07:14 Eos # (Auto) 0.6 10^3/uL (0.0-0.8) 09/18/24 07:14 Baso # (Auto) 0.1 10^3/uL (0.0-0.1) 09/18/24 07:14 Nucleated RBC % (auto) 0 % 09/18/24 07:14 Nucleated RBCs # 0.0 /100WBC 09/18/24 07:14 PT 19.80 SECONDS (12.1-14.9) H 09/17/24 07:14 INR 1.57 (0.8-1.2) H 09/17/24 07:14 APTT 36.9 SECONDS (23.9-36.7) H 09/17/24 07:14 Fibrinogen 111 mg/dL (174-498) L 09/17/24 07:14 D-Dimer 10.73 ug/mLFEU (0-0.59) H 09/17/24 07:14 Sodium 123 mmol/L (136-145) L 09/18/24 07:14 Potassium 4.7 mmol/L (3.5-5.1) 09/18/24 07:14 Chloride 92 mmol/L (98-107) L 09/18/24 07:14 Carbon Dioxide 19 mmol/L (22-29) L 09/18/24 07:14 Anion Gap 16.7 (5-19) 09/18/24 07:14 BUN 25 mg/dL (8-23) H 09/18/24 07:14 Creatinine 1.3 mg/dL (0.5-0.9) H 09/18/24 07:14 GFR Calculation 41.4 mL/min (90-130) L 09/18/24 07:14 Glucose 103 mg/dL (65-115) 09/18/24 07:14 Calculated Osmolality 261 mOsm/kg (285-295) L 09/18/24 07:14 Lactic Acid 7.5 mmol/L (0.5-2.2) H* 09/17/24 21:31 Lactic Acid (Sepsis) 7.0 mmol/L (0.5-2.2) H* 09/17/24 23:27 Calcium 8.1 mg/dL (8.5-10.5) L 09/18/24 07:14 Phosphorus 4.6 mg/dL (2.5-4.5) H 09/18/24 07:14 Magnesium 2.1 mg/dL (1.7-2.3) 09/18/24 07:14 Total Bilirubin 6.4 mg/dL (0.15-1.2) H 09/18/24 07:14 AST 60 U/L (0-32) H 09/18/24 07:14 ALT 24 U/L (0-33) 09/18/24 07:14 Alkaline Phosphatase 168 U/L (35-105) H 09/18/24 07:14 Ammonia 25 umol/L (11-51) 09/17/24 21:31 Troponin T Baseline 39 ng/L (0-10) H 09/17/24 21:31 Troponin T 120 Minute 37.99 ng/L (0-10) H 09/17/24 23:27 Delta Troponin T -1.01 ABS# (0-10) L 09/17/24 23:27 Troponin T Hi Sens 6Hr 33.13 ng/L (0-10) H 09/18/24 07:14 Troponin T Hi Sens 6Hr Delta -5.87 ng/L (0-12) L 09/18/24 07:14 Total Protein 5.9 g/dL (6.6-8.7) L 09/18/24 07:14 Albumin 2.3 g/dL (3.5-5.2) L 09/18/24 07:14 Globulin 3.6 g/dL (1.3-4.6) 09/18/24 07:14 Vitamin B12 1911 pg/mL (232-1245) H 09/17/24 21:31 Urine Color [place] (Yellow) A 09/17/24 22:04 Urine Appearance Cloudy (CLEAR) A 09/17/24 22:04 Urine pH 5.0 (5-7) 09/17/24 22:04 Ur Specific [place] 1.020 (1.005-1.030) 09/17/24 22:04 Urine Protein 1+ (Negative) A 09/17/24 22:04 Urine Glucose (UA) Negative (Normal) 09/17/24 22:04 Urine Ketones Negative (Negative) 09/17/24 22:04 Urine Blood Trace (Negative) A 09/17/24 22:04 Urine Nitrate Negative (Negative) 09/17/24 22:04 Urine Bilirubin 2+ (Negative) H 09/17/24 22:04 Urine Urobilinogen 1.0 mg/dL (Negative) 09/17/24 22:04 Ur Leukocyte Esterase 1+ (Negative) A 09/17/24 22:04 Urine RBC None /hpf (0-2) 09/17/24 22:04 Urine WBC 0-4 /hpf (0-5) H 09/17/24 22:04 Ur Squamous Epith Cells 10-15 /hpf (0-5) H 09/17/24 22:04 Amorphous Sediment Not Reportable 09/17/24 22:04 Urine Bacteria Trace /hpf (NONE) 09/17/24 22:04 Hyaline Casts 5-10 /lpf H 09/17/24 22:04 Ethyl Alcohol < 10 mg/dL (0-10) 09/17/24 21:31 Influenza A (PCR) Negative (Negative) 09/17/24 21:45 Influenza Type B (PCR) Negative (Negative) 09/17/24 21:45 RSV (PCR) Negative (Negative) 09/17/24 21:45 SARS-CoV-2 (PCR) Negative (Negative) 09/17/24 21:45 Blood Type A Positive 09/17/24 21:52 Rho(D) Type Rh positive 09/17/24 21:52 Antibody Screen Negative 09/17/24 21:52 Crossmatch See Detail 09/17/24 21:52 Radiology Impressions Chest X-Ray 09/17/24 21:14 IMPRESSION: Mild bilateral pleural effusions and bibasilar atelectasis , appearing to have increased from 08/29/2024 CT and radiograph. Superimposed pneumonic consolidation may be considered in the appropriate clinical setting. Paracentesis Ultrasound 09/18/24 23:56 IMPRESSION: Uncomplicated paracentesis yielding 1600 ml of peritoneal fluid. Recent Clincial Data Last Vital Signs Temp 98.3 F 09/18/24 09:01 Pulse 96 09/18/24 13:30 Resp 16 09/18/24 13:30 BP 88/60 09/18/24 13:30 Pulse Ox 100 09/18/24 13:30 O2 Del Method Room Air 09/18/24 13:30 Vital Signs Temp Pulse Resp BP Pulse Ox O2 Del Method 09/18/24 13:30 96 16 88/60 100 Room Air 09/18/24 13:00 95 18 97/72 100 09/18/24 12:30 94 20 H 97/72 100 09/18/24 12:00 93 23 H 114/74 09/18/24 11:30 78 18 107/74 100 09/18/24 11:13 94 18 107/74 100 Room Air 09/18/24 11:00 94 16 82/71 99 09/18/24 10:50 95 20 H 109/73 99 Room Air 09/18/24 10:30 95 20 H 93/72 96 09/18/24 10:01 90 19 H 93/72 99 09/18/24 09:31 95 14 109/73 97 09/18/24 09:01 98.3 F 94 18 100/64 98 Room Air 09/18/24 08:46 93 13 113/72 100 09/18/24 08:31 93 15 113/72 100 09/18/24 08:16 95 15 87/71 99 09/18/24 08:15 96 16 95 Room Air 09/18/24 08:01 96 18 87/71 94 09/18/24 07:46 96 19 H 100 09/18/24 07:30 98 17 85/63 09/18/24 07:15 94 16 85/63 97 09/18/24 07:00 98 13 99/68 93 09/18/24 06:45 95 14 99/68 95 09/18/24 06:30 94 14 99/68 95 09/18/24 06:15 93 15 103/71 96 09/18/24 06:00 93 14 108/71 93 09/18/24 06:00 96 09/18/24 05:45 92 14 108/71 94 09/18/24 05:30 92 16 93/64 91 09/18/24 05:15 93 14 93/64 70 L 09/18/24 05:00 97.8 F 97 19 H 114/71 Room Air 09/18/24 04:59 97.8 F 96 18 93/64 92 09/18/24 04:45 114/71 09/18/24 04:30 93 17 114/71 09/18/24 04:15 96 17 105/71 96 09/18/24 04:00 98.1 F 95 12 103/71 99 09/18/24 03:59 98.1 F 96 14 105/71 96 09/18/24 03:45 97 12 103/71 100 09/18/24 03:30 97 10 L 103/67 99 09/18/24 03:23 98 17 96 Room Air 09/18/24 03:15 96 12 103/67 96 09/18/24 03:01 95 11 L 103/67 96 09/18/24 02:59 98.1 F 99 15 103/67 97 09/18/24 02:46 99 18 87/56 95 09/18/24 02:44 98.1 F 96 17 103/67 100 09/18/24 02:42 97.9 F 98 21 H 87/56 97 09/18/24 02:31 98 15 91/60 84 L Intake & Output/Weight 09/16/24 09/17/24 09/18/24 09/19/24 06:59 06:59 06:59 06:59 Intake Total 350 / 350 1600 / 1600 Output Total 100 / 100 Balance 250 / 250 1600 / 1600 Weight 41.005 kg Vitals Last Vital Signs Temp 98.3 F 09/18/24 09:01 Pulse 96 09/18/24 13:30 Resp 16 09/18/24 13:30 BP 88/60 09/18/24 13:30 Pulse Ox 100 09/18/24 13:30 O2 Del Method Room Air 09/18/24 13:30 TS Medications Medications Acetaminophen (Acetaminophen 500 Mg Tablet) 500 mg PO Q4H PRN PRN Reason: fever Albuterol/Ipratropium (Ipratropium-Albuterol 3 Ml Neb) 3 ml INHALATION Q6H.RESP PRN PRN Reason: SHORTNESS OF BREATH Ceftriaxone Sodium (Ceftriaxone 2,000 Mg Sdv) 2,000 mg IVP Q24H [facility]; Protocol Last Admin: 09/18/24 08:08 Dose: 2,000 mg Lactulose (Lactulose Oral Liq 20 Gm/30 Ml Udc) 20 gm PO Q12H [facility] Last Admin: 09/18/24 10:24 Dose: 20 gm Levothyroxine Sodium (Levothyroxine 25 Mcg Tablet) 50 mcg PO ACBREAKFAST [facility] Last Admin: 09/18/24 08:07 Dose: 50 mcg Ondansetron HCl (Ondansetron 2 Mg/Ml Sdv 2 Ml) 4 mg IVP Q6H PRN PRN Reason: NAUSEA AND VOMITING Pantoprazole Sodium (Pantoprazole 40 Mg Sdv) 40 mg IVP BID [facility] Last Admin: 09/18/24 08:08 Dose: 40 mg Rifaximin (Rifaximin 200 Mg Tablet) 600 mg PO BID [facility] Last Admin: 09/18/24 08:07 Dose: 600 mg Sodium Chloride (Sodium Chloride 0.9% 100 Ml Bag) 50 ml IV PRN PRN PRN Reason: Blood transfusion prime and flush Stop: 09/18/24 21:49 Last Admin: 09/17/24 23:16 Dose: 50 ml Tramadol HCl (Tramadol 50 Mg Tablet) 50 mg PO BID PRN PRN Reason: Pain Discontinued Medications Cefepime HCl (Cefepime 2,000 Mg Sdv) 2,000 mg IVP ONCE STA; Protocol Stop: 09/17/24 22:20 Last Admin: 09/17/24 22:58 Dose: 2,000 mg Albumin Human (Albumin) 12.5 gm in 250 mls @ 300 mls/hr IV ONCE ONE Stop: 09/18/24 10:49 Last Admin: 09/18/24 10:24 Dose: 300 mls/hr Lactulose (Lactulose Oral Liq 20 Gm/30 Ml Udc) 20 gm PO TID [facility] Allergies bee venom protein (honey bee) Allergy (Severe, Verified 09/17/24 21:28) ALGY-Anaphylaxis Iodinated Contrast Media Allergy (Mild, Verified 09/17/24 21:28) ADR-Dizziness/Nausea Iodine and Iodide Containing Produc Allergy (Verified 09/17/24 21:28) ADR-Hallucinating Home Medications paroxetine HCl 20 mg tablet 20 mg PO DAILY 09/25/23 [History Confirmed 09/18/24] levothyroxine 25 mcg tablet 50 mcg PO DAILY 09/12/24 [History Confirmed 09/18/24] pantoprazole 40 mg tablet,delayed release 40 mg PO BID 09/12/24 [History Confirmed 09/18/24] zolpidem 10 mg tablet (Ambien) 5 mg PO BEDTIME 09/12/24 [History Confirmed 09/18/24] Discharge Plan Discharge Patient Disposition: Xfer Other Condition: Stable Prescriptions: No Action pantoprazole 40 mg tablet,delayed release (DR/EC) 40 mg PO BID paroxetine HCl 20 mg tablet 20 mg PO DAILY levothyroxine 25 mcg tablet 50 mcg PO DAILY Ambien 10 mg tablet 5 mg PO BEDTIME Referrals: Moe Carrillo DO [Primary Care Provider] - Patient Instructions: Opioid Safety Transfer Attestations Time Spent in Transfer Care: greater than 30 min Quality Metrics Clinical Quality Measures [ No reported AMI, CVA or VTE this stay] Coding Level of Care Code 03803 Total time (in minutes) for Discharge: 65 Diagnoses Anemia D64.9 Cirrhosis K74.60
[2024-09-18 14:45] LABS: Albumin Body Fluid 0.4 g/dL; Cholesterol Body Fluid 9 mg/dL (0-200); Fluid Alkaline Phos. 14 IU/L; LDH Body Fluid 38 U/L; Total Protein Body Fluid 0.7 g/dL; Triglycerides Body Fluid 23 mg/dL (0-150); Uric Acid Body Fluid 6 mg/dL
[2024-09-18 14:52] LABS: Body Fluid Polynuclear #Cells 0.004; Body Fluid WBC 46 /uL; Monocytes # Body Fluid 0.042; RBC, Body Fluid 0 10^3/uL
[2024-09-18 15:01] LABS: Apprearance, Body Fluid CLOUDY; Color, Body Fluid PALE YELLOW; Cyto Order Verification Order Verified
[2024-09-18 15:02] LABS: Fluid Laterality ASCITES; pH Body Fluid 7.5
[2024-09-18] MEDS: midodrine 5 mg TABLET 10 MG PO (15:33)
[2024-09-18] MEDS: albumin 25 G/100 ML BAG 60 G IV (15:35)
[2024-09-18 15:44] LABS: Basophils # 0.1 10^3/uL (0.0-0.1); Basophils % 0.5 %; Eosinophils % 0.1 %; Hematocrit 29.2 % (36-47); Lymphocytes # 3.2 10^3/uL (0.8-4.8); Lymphocytes % 18.6 %; Mean Corpuscular HGB Conc 34.6 g/dL (30-55); Mean Corpuscular Volume 83.9 fl (85-98); Mean Platelet Volume 10.8 fL (7.4-10.4); Monocytes # 1.9 10^3/uL (0.2-0.9); Monocytes % 11.4 %; Neutrophils % 68.8 %; Nucleated Red Blood Cells % 0 %; Platelet Count 170 10^3/cmm (157-399); Red Blood Count 3.48 10^6/uL (3.85-5.65); Red Cell Distribution Width 18.1 % (12.1-15.1)
[2024-09-18 16:05] LABS: Alanine Aminotransferase 24 U/L (0-33); Albumin Level 2.8 g/dL (3.5-5.2); Alkaline Phosphatase 161 U/L (35-105); Aspartate Amino Transferase 60 U/L (0-32); Blood Urea Nitrogen 25 mg/dL (8-23); Calcium 8.4 mg/dL (8.5-10.5); Carbon Dioxide 19 mmol/L (22-29); Chloride 91 mmol/L (98-107); Creatinine Clr Calc Pharmacy 33.8861; Globulin 3.7 g/dL (1.3-4.6); Glomerular Filtration Rate 50.2 mL/min (90-130); Glucose 110 mg/dL (65-115); Osmolality Calculated 261 mOsm/kg (285-295); Sodium 123 mmol/L (136-145); Total Bilirubin 6.1 mg/dL (0.15-1.2); Total Protein 6.5 g/dL (6.6-8.7)
[2024-09-18 16:06] LABS: Lactate (Lactic Acid level) 2.7 mmol/L (0.5-2.2)
[2024-09-18 16:20] LABS: Anion Gap 17.5 (5-19); Potassium 4.5 mmol/L (3.5-5.1)
--- NOTE | 2024-09-18 16:21 | PC.NURSE ---
Patient had not urinated all day. Patient's bladder was scanned and 560 ml of urine were found. Dr. Gomez was contacted and ordered for a Tyson to be inserted.
[2024-09-18] MEDS: octreotide 500 MCG in sodium chloride 0.9% (100 ml) 100 ML 10.1 MCG IV (16:36)
--- NOTE | 2024-09-18 19:03 | PC.NURSE ---
Report was called to [place] in [facility]. Patient is going to [address] [place] [address] ICU. Phone number is [phone]. [facility] came and picked up the patient at 1906.
--- NOTE | 2024-09-18 23:56 | US_ITS ---
WS: [id number] ULTRASOUND-GUIDED THERAPEUTIC AND DIAGNOSTIC PARACENTESIS Procedure, risks, and complications have been explained to the patient. Consent is obtained. Utilizing aseptic technique and 1% buffered lidocaine, a small dermatome was made through which a 5 Cymro Yueh catheter was inserted. Approximately 1600 ml of clear peritoneal fluid was obtained without difficulty. No complications encountered. Specimen collected for analysis. US/US paracentesis abd w [id number] IMPRESSION: Uncomplicated paracentesis yielding 1600 ml of peritoneal fluid.
== END 2024-09-18 19:06 | disposition short-term general hospital (02) | DRG 433 ==
LOC: ER 22:50 → ICU 23:13
PROVIDERS: Admitting Provider Internal Medicine; Emergency Provider Emergency Medicine; PCP Electrodiagnostic Medicine; Visit Provider Internal Medicine
DX: K70.30 Alcoholic cirrhosis of liver without ascites (principal); E46 Unspecified protein-calorie malnutrition; E87.20 Acidosis, unspecified; K76.6 Portal hypertension; E87.1 Hypo-osmolality and hyponatremia; Z68.1 Body mass index [BMI] 19.9 or less, adult; N17.9 Acute kidney failure, unspecified; K92.1 Melena; D64.9 Anemia, unspecified; K21.9 Gastro-esophageal reflux disease without esophagitis; E03.9 Hypothyroidism, unspecified; F41.9 Anxiety disorder, unspecified
CPT/HCPCS: 36415; 36430; 49083; 51702; 71045; 80053; 80307; 80503; 81001; 82042; 82140; 82150; 82465; 82607; 82945; 83605; 83615; 83735; 83986; 84075; 84100; 84157; 84315; 84478; 84484; 84560; 85025; 85362; 85378; 85384; 85610; 85730; 86850; 86900; 86920; 87015; 87040; 87070; 87075; 87116; 87205; 87206; 87637; 87801; 88112; 89050; 93005; 96374; 99285; J0692; J0696; J2354; J2470; J9999; P9016; P9045; P9046